=== PATIENT | female | born 1950 | race Caucasian/White ===

== ENCOUNTER 2018-11-23 18:59 | Emergency (ER) | payer MEDICARE, OTHER ==
[~2018-11-23] VITALS: Ht 167.6 cm; Wt 72.6 kg
[2018-11-23 19:54] LABS: Basophils # (auto) 0 uL; Basophils % (auto) 0.5 % (0.0-2.0); Eosinophils # (auto) 0.1 uL; Lymphocytes # (auto) 2.4 uL; Monocytes # (auto) 0.5 uL; Monocytes % (auto) 6.4 % (0.0-12.0); Nucleated Red Blood Cells % 0.2 %
[2018-11-23 19:55] LABS: Hematocrit 32.9 % (36.0-46.0); Hemoglobin 9.9 g/dL (12.2-16.2); Lymphocytes % (auto) 33.3 % (10.0-50.0); Mean Corpuscular Hemoglobin 23.7 pg (28.0-32.0); Neutrophils # (auto) 4.1 uL; Neutrophils % (auto) 57.8 % (37.0-80.0); Platelet Count (auto) 501 10^3/uL (140-450); Red Blood Cells 4.17 10^6/uL (4.0-5.20); Red Cell Distribution Width 17.9 % (11.8-14.3); White Blood Cell 7.1 10^3/uL (4.4-10.8)
[2018-11-23 20:16] LABS: Albumin 3.7 g/dL (3.4-5.0); Anion Gap 9 (5-15); Blood Urea Nitrogen 17 mg/dL (7-18); Calcium 8.9 mg/dL (8.5-10.1); Carbon Dioxide 20 mmol/L (21-32); Chloride 112 mmol/L (98-107); Glucose 127 mg/dL (74-106); Potassium 3.7 mmol/L (3.5-5.1); Sodium 141 mmol/L (136-145)
[2018-11-23 20:22] LABS: Alanine Aminotransferase 53 U/L (13-56); Alkaline Phosphatase 103 U/L (45-117); Aspartate Aminotransferase 16 U/L (15-37); BUN/Creatinine Ratio 19.3; Bilirubin, Total 0.3 mg/dL (0.2-1.0); GFR African American 82 mL/min; GFR Non-African American 68 mL/min; Total Protein 8.2 g/dL (6.4-8.2)
[2018-11-23] MEDS ORDERED: SODIUM CHLORIDE 0.9% 1,000 ML IVB ONE (20:58)
[2018-11-23 21:43] LABS: INR 0.95 (0.9-1.15); Partial Thromboplastin Time 26.2 sec (23.78-33.04); Prothrombin Time 10.2 sec (9.27-12.13)
[2018-11-23 21:47] LABS: Urine Bacteria FEW /hpf (None Seen); Urine Blood Negative /uL (Negative); Urine Specific Gravity 1.003 (1.001-1.035); Urine WBC <1 /hpf (0 - 5)
[2018-11-23] MEDS ORDERED: CLOP75TA28 PO (22:01)
[2018-11-23] MEDS ORDERED: METO-169 PO (22:01)
[2018-11-23] MEDS ORDERED: ATOR80TA PO (22:01)
[2018-11-23] MEDS ORDERED: ASPI81CH43 GT (22:01)
[2018-11-23 23:18] VITALS: BP 109/65
[2018-11-24] MEDS ORDERED: MULTIPLE VITAMIN 10 ML, MAGNESIUM SULF SDV 50% 8 MEQ in SODIUM CHLORIDE 0.9% 1,000 ML IV SCH (12:00)
== END 2018-11-23 23:30 | disposition home or self-care (01) ==
LOC: EDBD 18:59 → ER 19:01
DX: R55 Syncope and collapse (principal); D50.9 Iron deficiency anemia, unspecified; M25.572 Pain in left ankle and joints of left foot; F10.10 Alcohol abuse, uncomplicated; R42 Dizziness and giddiness; K21.9 Gastro-esophageal reflux disease without esophagitis; E78.5 Hyperlipidemia, unspecified; I10 Essential (primary) hypertension; Z90.49 Acquired absence of other specified parts of digestive tract; Z98.61 Coronary angioplasty status; Y90.8 Blood alcohol level of 240 mg/100 ml or more
CPT/HCPCS: 36415; 70450; 71045; 72125; 73610; 80053; 80320; 81001; 83735; 83880; 84484; 84550; 85025; 85610; 85730; 93005; 93970; 94761; 96360; 99284; J7040

== ENCOUNTER 2021-03-11 12:30 | Inpatient (IN) | payer MEDICARE, OTHER ==
[~2021-03-11] VITALS: Ht 157.5 cm; Wt 90.0 kg
[2021-03-11] VITALS (7 sets, daily range): BP systolic 122–137; BP diastolic 50–64
[~2021-03-11 12:30] MED LIST: ASPI81CH43 GT; ATOR80TA PO; CLOP75TA28 PO; METO-289 PO
[2021-03-11 13:26] LABS: Basophils # (auto) 0 10 ^3/uL (0-0.2); Eosinophils # (auto) 0 10 ^3/uL (0-0.8); Monocytes # (auto) 0.8 10 ^3/uL (0-1.3)
[2021-03-11 13:28] LABS: Basophils % (auto) 0.2 % (0.0-2.0); Eosinophils % (auto) 0.3 % (0.0-7.0); Hematocrit 21.1 % (36.0-46.0); Lymphocytes # (auto) 0.9 10 ^3/uL (0.4-5.4); Lymphocytes % (auto) 7.7 % (10.0-50.0); Mean Corpuscular Hemoglobin 22.5 pg (28.0-32.0); Mean Corpuscular Hgb Conc. 31.4 g/dL (32.0-36.0); Mean Corpuscular Volume 71.8 fL (80.0-100.0); Monocytes % (auto) 7.4 % (0.0-12.0); Neutrophils # (auto) 9.4 10 ^3/uL (1.6-8.6); Neutrophils % (auto) 84.4 % (37.0-80.0); Nucleated Red Blood Cells % 0.2 %; Red Blood Cells 2.94 10^6/uL (4.0-5.20); White Blood Cell 11.1 10^3/uL (4.4-10.8)
[2021-03-11 13:30] LABS: Red Cell Distribution Width 20.8 % (11.8-14.3)
[2021-03-11 13:33] LABS: Hemoglobin 6.6 g/dL (12.2-16.2)
[2021-03-11 13:43] LABS: Albumin 3.2 g/dL (3.4-5.0); Calcium 9.2 mg/dL (8.5-10.1); Potassium 3.7 mmol/L (3.5-5.1)
[2021-03-11 13:47] LABS: BUN/Creatinine Ratio 17.1; Bilirubin, Total 2.7 mg/dL (0.2-1.0)
[2021-03-11] MEDS ORDERED: ACETAMINOPHEN 325 MG TAB PO ONE (16:30)
[2021-03-11] MEDS ORDERED: MORPHINE SULF INJ 2 MG/ML SYRINGE 1ML IV ONE (16:30)
[2021-03-11] MEDS ORDERED: NITROGLYCERIN 0.4 MG SL TAB SL PRN (16:30)
[2021-03-11] MEDS ORDERED: ACETAMINOPHEN 500 MG TAB PO PRN (16:30)
[2021-03-11] MEDS ORDERED: ONDANSETRON HCL 4 MG/2 ML VIAL IV ONE (16:30)
[2021-03-11] MEDS ORDERED: MORPHINE SULF INJ 2 MG/ML SYRINGE 1ML IV PRN (16:30)
[2021-03-11 17:50] LABS: % Iron Saturation 4.8 % (15-50); Folate (Folic Acid) 9.76 ng/mL (5.38-24)
[2021-03-11] MEDS: ONDANSETRON HCL 4 MG/2 ML VIAL IV PRN (20:03)
[2021-03-11] MEDS: MORPHINE SULF INJ 2 MG/ML SYRINGE 1ML IV PRN (23:49)
[2021-03-12 05:00] VITALS: BP 118/58
[2021-03-12] MEDS: MORPHINE SULF INJ 2 MG/ML SYRINGE 1ML IV PRN ×4 (06:40→20:30)
[2021-03-12 06:46] LABS: Basophils # (auto) 0.1 10 ^3/uL (0-0.2); Basophils % (auto) 0.4 % (0.0-2.0); Eosinophils # (auto) 0 10 ^3/uL (0-0.8); Eosinophils % (auto) 0.1 % (0.0-7.0); Hematocrit 25.7 % (36.0-46.0); Lymphocytes % (auto) 7.3 % (10.0-50.0); Mean Corpuscular Hemoglobin 23.3 pg (28.0-32.0); Mean Corpuscular Hgb Conc. 31.3 g/dL (32.0-36.0); Mean Corpuscular Volume 74.4 fL (80.0-100.0); Monocytes # (auto) 0.9 10 ^3/uL (0-1.3); Monocytes % (auto) 6.1 % (0.0-12.0); Neutrophils # (auto) 12.4 10 ^3/uL (1.6-8.6); Neutrophils % (auto) 86.1 % (37.0-80.0); Nucleated Red Blood Cells % 0.1 %; Red Blood Cells 3.45 10^6/uL (4.0-5.20); Red Cell Distribution Width 20.7 % (11.8-14.3); White Blood Cell 14.4 10^3/uL (4.4-10.8)
[2021-03-12 07:03] LABS: Calcium 9.5 mg/dL (8.5-10.1)
[2021-03-12] MEDS ORDERED: VANCOMYCIN PER PHARMACY 0 MG IV SCH (08:45)
[2021-03-12 09:00] VITALS: BP 126/67
[2021-03-12] MEDS: cefTRIAXone 1GM/50ML D5W 50 ML IV SCH (09:17)
[2021-03-12 09:46] LABS: BUN/Creatinine Ratio 20.7
[2021-03-12] MEDS ORDERED: VANCOMYCIN 750mg/250ml 250 ML IV SCH (10:00)
[2021-03-12] MEDS ORDERED: CLOPIDOGREL BISULFATE 75 MG TAB PO SCH (10:00)
[2021-03-12] MEDS ORDERED: ASPirin 81 mg TAB PO SCH (10:00)
[2021-03-12] MEDS: FAMOTIDINE 20 MG TAB PO SCH (10:04)
[2021-03-12] MEDS: METOPROLOL SUCCINATE XL 50 MG TAB PO SCH (10:08)
[2021-03-12 10:57] LABS: Urine Bacteria FEW /hpf (None Seen); Urine Blood Negative /uL (Negative); Urine Specific Gravity 1.018 (1.001-1.035); Urine WBC <1 /hpf (0 - 5)
[2021-03-12 13:00] VITALS: BP 127/76
[2021-03-12] MEDS: metroNIDAZOLE 500MG/100ML 100 ML IV SCH ×2 (14:32→21:04)
[2021-03-12] MEDS ORDERED: GASTROGRAFIN 120 ML SOL ONE (16:15)
[2021-03-12] MEDS: SODIUM CHLORIDE 0.9% 1,000 ML IV SCH (16:45)
[2021-03-12] MEDS: ONDANSETRON HCL 4 MG/2 ML VIAL IV PRN (20:29)
[2021-03-12] MEDS ORDERED: FLEET ENEMA(ADULT) 135 ML PR ONE (22:00)
[2021-03-12 22:10] VITALS: BP 127/61
[2021-03-13] MEDS: MORPHINE SULF INJ 2 MG/ML SYRINGE 1ML IV PRN ×2 (01:19→05:21)
[2021-03-13 05:00] VITALS: BP 149/77
[2021-03-13] MEDS: metroNIDAZOLE 500MG/100ML 100 ML IV SCH ×2 (05:21→16:06)
[2021-03-13] MEDS: SODIUM CHLORIDE 0.9% 1,000 ML IV SCH (06:05)
[2021-03-13 06:15] LABS: Eosinophils # (auto) 0 10 ^3/uL (0-0.8); Eosinophils % (auto) 0.1 % (0.0-7.0); Hemoglobin 7.2 g/dL (12.2-16.2); Monocytes # (auto) 0.9 10 ^3/uL (0-1.3); White Blood Cell 10.9 10^3/uL (4.4-10.8)
[2021-03-13 06:20] LABS: Basophils # (auto) 0 10 ^3/uL (0-0.2); Basophils % (auto) 0.3 % (0.0-2.0); Hematocrit 22.6 % (36.0-46.0); Lymphocytes # (auto) 0.7 10 ^3/uL (0.4-5.4); Mean Corpuscular Hemoglobin 23.5 pg (28.0-32.0); Mean Corpuscular Hgb Conc. 31.8 g/dL (32.0-36.0); Mean Corpuscular Volume 73.7 fL (80.0-100.0); Neutrophils # (auto) 9.3 10 ^3/uL (1.6-8.6); Neutrophils % (auto) 85.6 % (37.0-80.0); Red Blood Cells 3.06 10^6/uL (4.0-5.20)
[2021-03-13 06:38] LABS: Potassium 3.1 mmol/L (3.5-5.1)
[2021-03-13 06:47] LABS: INR 1.06 (0.9-1.15); Partial Thromboplastin Time 28.2 sec (23.0-31.2)
[2021-03-13 06:48] LABS: Red Cell Distribution Width 21.5 % (11.8-14.3)
[2021-03-13 06:51] LABS: BUN/Creatinine Ratio 24.3; Calcium 9.3 mg/dL (8.5-10.1)
[2021-03-13 09:00] VITALS: BP 147/67
[2021-03-13] MEDS ORDERED: POTASSIUM CHLORIDE 40 MEQ, LIDOCAINE 1% (LOCAL ANESTH.) 4 ML in SODIUM CHL 0.9% 250 ML IV ONE (09:15)
[2021-03-13] MEDS: METOPROLOL SUCCINATE XL 50 MG TAB PO SCH (09:38)
[2021-03-13] MEDS: FAMOTIDINE 20 MG TAB PO SCH (09:38)
[2021-03-13] MEDS: cefTRIAXone 1GM/50ML D5W 50 ML IV SCH (09:39)
[2021-03-13] MEDS: HYDROcodone-ACET 5/325MG TAB PO PRN ×2 (11:00→20:12)
[2021-03-13 13:00] VITALS: BP 133/64
[2021-03-13] MEDS: ONDANSETRON HCL 4 MG/2 ML VIAL IV PRN (14:12)
[2021-03-13] MEDS: SODIUM FERR GLUC 62.5MG/5ML 125 MG in SODIUM CHL 0.9% 100 ML IV SCH (14:13)
[2021-03-13] MEDS: ERGOCALCIFEROL 50,000 UNIT(1.25MG) CAP PO SCH (14:14)
[2021-03-13 16:45] VITALS: BP 142/72
[2021-03-13] MEDS ORDERED: methylPREDNISolone SOD SUCC 40 MG/ML VL IV ONE (17:15)
[2021-03-13 22:27] VITALS: BP 111/59
[2021-03-14] VITALS (11 sets, daily range): BP systolic 128–157; BP diastolic 63–85
[2021-03-14] MEDS: HYDROcodone-ACET 5/325MG TAB PO PRN ×3 (02:11→22:24)
[2021-03-14 06:19] LABS: Eosinophils # (auto) 0 10 ^3/uL (0-0.8); Eosinophils % (auto) 0.1 % (0.0-7.0); Lymphocytes # (auto) 0.5 10 ^3/uL (0.4-5.4); Monocytes # (auto) 0.6 10 ^3/uL (0-1.3); Neutrophils # (auto) 9.5 10 ^3/uL (1.6-8.6)
[2021-03-14 07:17] LABS: Basophils # (auto) 0 10 ^3/uL (0-0.2); Basophils % (auto) 0.1 % (0.0-2.0); Hematocrit 21.7 % (36.0-46.0); Lymphocytes % (auto) 4.7 % (10.0-50.0); Mean Corpuscular Hemoglobin 23.8 pg (28.0-32.0); Mean Corpuscular Hgb Conc. 32.4 g/dL (32.0-36.0); Mean Corpuscular Volume 73.6 fL (80.0-100.0); Monocytes % (auto) 5.7 % (0.0-12.0); Neutrophils % (auto) 89.4 % (37.0-80.0); Red Blood Cells 2.95 10^6/uL (4.0-5.20); White Blood Cell 10.6 10^3/uL (4.4-10.8)
[2021-03-14 07:51] LABS: Red Cell Distribution Width 21.2 % (11.8-14.3)
[2021-03-14] MEDS: FAMOTIDINE 20 MG TAB PO SCH (09:05)
[2021-03-14] MEDS: methylPREDNISolone SOD SUCC 40 MG/ML VL IV SCH (09:05)
[2021-03-14] MEDS: METOPROLOL SUCCINATE XL 50 MG TAB PO SCH (09:06)
[2021-03-14] MEDS ORDERED: POTASSIUM CHLORIDE 20 MEQ, LIDOCAINE 1% (LOCAL ANESTH.) 2 ML in SODIUM CHL 0.9% 100 ML IV ONE (09:30)
[2021-03-14] MEDS: SODIUM FERR GLUC 62.5MG/5ML 125 MG in SODIUM CHL 0.9% 100 ML IV SCH (12:27)
[2021-03-14 21:21] LABS: Hematocrit 30.4 % (36.0-46.0); Hemoglobin 9.7 g/dL (12.2-16.2)
[2021-03-14 21:38] LABS: Potassium 3.5 mmol/L (3.5-5.1)
[2021-03-14 21:39] LABS: BUN/Creatinine Ratio 33.9; Calcium 9.8 mg/dL (8.5-10.1)
[2021-03-15] MEDS: HYDROcodone-ACET 5/325MG TAB PO PRN ×3 (04:35→18:10)
[2021-03-15 05:19] LABS: Basophils # (auto) 0 10 ^3/uL (0-0.2); Eosinophils # (auto) 0 10 ^3/uL (0-0.8); Eosinophils % (auto) 0.2 % (0.0-7.0); Lymphocytes # (auto) 0.9 10 ^3/uL (0.4-5.4); Neutrophils # (auto) 9.2 10 ^3/uL (1.6-8.6); Nucleated Red Blood Cells % 0.1 %; Red Blood Cells 3.92 10^6/uL (4.0-5.20)
[2021-03-15 05:20] LABS: Basophils % (auto) 0.1 % (0.0-2.0); Hematocrit 29.9 % (36.0-46.0); Hemoglobin 9.6 g/dL (12.2-16.2); Lymphocytes % (auto) 8.3 % (10.0-50.0); Mean Corpuscular Hemoglobin 24.5 pg (28.0-32.0); Mean Corpuscular Volume 76.5 fL (80.0-100.0); Monocytes # (auto) 0.9 10 ^3/uL (0-1.3); Monocytes % (auto) 7.8 % (0.0-12.0); Neutrophils % (auto) 83.6 % (37.0-80.0)
[2021-03-15 05:23] VITALS: BP 169/69
[2021-03-15 05:33] LABS: Potassium 3.5 mmol/L (3.5-5.1)
[2021-03-15 05:36] LABS: Red Cell Distribution Width 22.5 % (11.8-14.3)
[2021-03-15 05:42] LABS: Albumin 2.5 g/dL (3.4-5.0); BUN/Creatinine Ratio 41.5; Bilirubin, Total 1.2 mg/dL (0.2-1.0); Calcium 9.9 mg/dL (8.5-10.1); Total Protein 7.4 g/dL (6.4-8.2)
[2021-03-15 09:00] VITALS: BP 144/78
[2021-03-15] MEDS: methylPREDNISolone SOD SUCC 40 MG/ML VL IV SCH (10:17)
[2021-03-15] MEDS: FAMOTIDINE 20 MG TAB PO SCH (10:18)
[2021-03-15] MEDS: METOPROLOL SUCCINATE XL 50 MG TAB PO SCH (10:18)
[2021-03-15 13:00] VITALS: BP 142/81
[2021-03-15] MEDS: SODIUM FERR GLUC 62.5MG/5ML 125 MG in SODIUM CHL 0.9% 100 ML IV SCH (13:37)
[2021-03-15 17:00] VITALS: BP 140/78
[2021-03-15 22:25] VITALS: BP 117/80
[2021-03-16] VITALS (7 sets, daily range): BP systolic 141–163; BP diastolic 56–93
[2021-03-16] MEDS: HYDROcodone-ACET 5/325MG TAB PO PRN ×2 (00:38→21:02)
[2021-03-16] MEDS: ONDANSETRON HCL 4 MG/2 ML VIAL IV PRN ×2 (01:11→01:44)
[2021-03-16] MEDS: MORPHINE SULF INJ 2 MG/ML SYRINGE 1ML IV PRN ×3 (01:20→18:11)
[2021-03-16 05:34] LABS: Albumin 2.6 g/dL (3.4-5.0); Calcium 9.7 mg/dL (8.5-10.1); Potassium 3.5 mmol/L (3.5-5.1)
[2021-03-16 05:38] LABS: BUN/Creatinine Ratio 39.6; Total Protein 7.3 g/dL (6.4-8.2)
[2021-03-16 05:43] LABS: Basophils # (auto) 0 10 ^3/uL (0-0.2); Eosinophils # (auto) 0 10 ^3/uL (0-0.8); Hemoglobin 10.3 g/dL (12.2-16.2); Lymphocytes # (auto) 0.8 10 ^3/uL (0.4-5.4)
[2021-03-16 05:45] LABS: Basophils % (auto) 0.2 % (0.0-2.0); Eosinophils % (auto) 0.2 % (0.0-7.0); Hematocrit 31.5 % (36.0-46.0); Lymphocytes % (auto) 6.1 % (10.0-50.0); Mean Corpuscular Hemoglobin 25.2 pg (28.0-32.0); Mean Corpuscular Hgb Conc. 32.8 g/dL (32.0-36.0); Mean Corpuscular Volume 76.8 fL (80.0-100.0); Monocytes % (auto) 7.8 % (0.0-12.0); Neutrophils # (auto) 10.7 10 ^3/uL (1.6-8.6); Neutrophils % (auto) 85.7 % (37.0-80.0); White Blood Cell 12.5 10^3/uL (4.4-10.8)
[2021-03-16 05:52] LABS: Red Cell Distribution Width 22.8 % (11.8-14.3)
[2021-03-16] MEDS ORDERED: HEPARIN SODIUM (PORCINE) 5000 UNITS/ML 1ML VIAL SC SCH (10:00)
[2021-03-16] MEDS: methylPREDNISolone SOD SUCC 40 MG/ML VL IV SCH (11:02)
[2021-03-16] MEDS: FAMOTIDINE 20 MG TAB PO SCH (11:02)
[2021-03-16] MEDS: METOPROLOL SUCCINATE XL 50 MG TAB PO SCH (11:02)
[2021-03-17] MEDS: MORPHINE SULF INJ 2 MG/ML SYRINGE 1ML IV PRN ×2 (00:47→07:58)
[2021-03-17] MEDS: HYDROcodone-ACET 5/325MG TAB PO PRN (04:16)
[2021-03-17 05:05] VITALS: BP 145/85
[2021-03-17 06:32] LABS: Eosinophils # (auto) 0.1 10 ^3/uL (0-0.8); Hemoglobin 9.8 g/dL (12.2-16.2); Mean Corpuscular Hemoglobin 24.7 pg (28.0-32.0)
[2021-03-17 06:34] LABS: Basophils # (auto) 0.1 10 ^3/uL (0-0.2); Basophils % (auto) 0.7 % (0.0-2.0); Eosinophils % (auto) 0.8 % (0.0-7.0); Hematocrit 30.3 % (36.0-46.0); Lymphocytes % (auto) 6.6 % (10.0-50.0); Mean Corpuscular Hgb Conc. 32.2 g/dL (32.0-36.0); Mean Corpuscular Volume 76.8 fL (80.0-100.0); Monocytes % (auto) 6.9 % (0.0-12.0); Neutrophils # (auto) 12.4 10 ^3/uL (1.6-8.6); Red Blood Cells 3.95 10^6/uL (4.0-5.20); White Blood Cell 14.6 10^3/uL (4.4-10.8)
[2021-03-17 06:44] LABS: Red Cell Distribution Width 22.9 % (11.8-14.3)
[2021-03-17 06:48] LABS: BUN/Creatinine Ratio 33.3; Calcium 9.3 mg/dL (8.5-10.1)
[2021-03-17 08:15] VITALS: BP 145/84
[2021-03-17 09:20] VITALS: BP 145/84
[2021-03-17] MEDS ORDERED: KETOROLAC TROMETH 30 MG/ML 1ML VIAL IV ONE (09:30)
[2021-03-17] MEDS ORDERED: IOHEXOL 300 MG/ML 100ML BOTTLE IJ ONE (09:50)
[2021-03-17] MEDS ORDERED: diphenhdrAMINE HCL 50 MG/1 ML VL ONE (09:57)
[2021-03-17] MEDS: LACTULOSE 20Gm/30ML SOLN PO SCH (10:41)
[2021-03-17] MEDS: methylPREDNISolone SOD SUCC 40 MG/ML VL IV SCH (10:41)
[2021-03-17] MEDS: DOCUSATE SOD 100 MG CAP PO SCH ×2 (10:42→21:39)
[2021-03-17] MEDS: FAMOTIDINE 20 MG TAB PO SCH (10:42)
[2021-03-17] MEDS: METOPROLOL SUCCINATE XL 50 MG TAB PO SCH (10:42)
[2021-03-17] MEDS ORDERED: PANTOPRAZOLE 40 MG/10 ML VIAL INJ IV ONE (12:15)
[2021-03-17 13:00] VITALS: BP 119/74
[2021-03-17] MEDS: D5W/SOD CHL 0.9%/KCL 40MEQ 1,000 ML IV SCH (14:06)
[2021-03-17] MEDS: POTASSIUM CHL 20MEQ/100ML 100 ML IV SCH ×2 (14:07→15:47)
[2021-03-17] MEDS: KETOROLAC TROMETH 30 MG/ML 1ML VIAL IV PRN ×2 (14:07→20:25)
[2021-03-17 17:00] VITALS: BP 131/65
[2021-03-17 22:00] VITALS: BP 126/70
[2021-03-18] MEDS: KETOROLAC TROMETH 30 MG/ML 1ML VIAL IV PRN ×3 (02:33→17:49)
[2021-03-18] MEDS: D5W/SOD CHL 0.9%/KCL 40MEQ 1,000 ML IV SCH ×2 (04:53→14:15)
[2021-03-18 05:00] VITALS: BP 148/74
[2021-03-18 06:32] LABS: Basophils # (auto) 0 10 ^3/uL (0-0.2); Basophils % (auto) 0.1 % (0.0-2.0); Lymphocytes # (auto) 0.7 10 ^3/uL (0.4-5.4); Monocytes # (auto) 0.6 10 ^3/uL (0-1.3); Neutrophils # (auto) 12.1 10 ^3/uL (1.6-8.6); Red Blood Cells 3.78 10^6/uL (4.0-5.20); White Blood Cell 13.5 10^3/uL (4.4-10.8)
[2021-03-18 06:35] LABS: Eosinophils # (auto) 0.2 10 ^3/uL (0-0.8); Eosinophils % (auto) 1.2 % (0.0-7.0); Hematocrit 29.3 % (36.0-46.0); Hemoglobin 9.5 g/dL (12.2-16.2); Lymphocytes % (auto) 4.9 % (10.0-50.0); Mean Corpuscular Hemoglobin 25.2 pg (28.0-32.0); Mean Corpuscular Hgb Conc. 32.6 g/dL (32.0-36.0); Mean Corpuscular Volume 77.5 fL (80.0-100.0); Monocytes % (auto) 4.6 % (0.0-12.0); Neutrophils % (auto) 89.2 % (37.0-80.0)
[2021-03-18 06:42] LABS: BUN/Creatinine Ratio 21.1; Calcium 8.9 mg/dL (8.5-10.1)
[2021-03-18 06:48] LABS: Red Cell Distribution Width 23.6 % (11.8-14.3)
[2021-03-18 09:00] VITALS: BP 135/87
[2021-03-18] MEDS: LACTULOSE 20Gm/30ML SOLN PO SCH (09:21)
[2021-03-18] MEDS: METOPROLOL SUCCINATE XL 50 MG TAB PO SCH (09:22)
[2021-03-18] MEDS: methylPREDNISolone SOD SUCC 40 MG/ML VL IV SCH (09:22)
[2021-03-18] MEDS: DOCUSATE SOD 100 MG CAP PO SCH (09:22)
[2021-03-18] MEDS: PANTOPRAZOLE 40 MG/10 ML VIAL INJ IV SCH (09:23)
[2021-03-18] MEDS ORDERED: POTASSIUM CHLORIDE 40 MEQ, LIDOCAINE 1% (LOCAL ANESTH.) 4 ML in SODIUM CHL 0.9% 250 ML IV ONE (10:30)
[2021-03-18] MEDS ORDERED: PPN PER PHARMACY 0 ML IV SCH (10:30)
[2021-03-18 11:26] LABS: Magnesium 2.1 mg/dL (1.6-2.6); Phosphorus 3.1 mg/dL (2.5-4.90)
[2021-03-18] MEDS ORDERED: GASTROGRAFIN 120 ML SOL ONE ×3 (12:24→14:19)
[2021-03-18 13:16] VITALS: BP 137/74
[2021-03-18 15:51] LABS: INR 1.17 (0.9-1.15); Partial Thromboplastin Time 28.7 sec (23.0-31.2)
[2021-03-18 17:00] VITALS: BP 153/80
[2021-03-18] MEDS ORDERED: NEOSTIGMINE 1 MG/ML INJ (10mg/10ML VIAL) SC ONE (18:00)
[2021-03-18 20:00] VITALS: BP 158/79
[2021-03-18] MEDS ORDERED: AMINO ACID INFUSION IN D10W 1,000 ML IV NR (20:00)
[2021-03-18 22:00] VITALS: BP 158/79
[2021-03-19] MEDS ORDERED: DEXTROSE (50%) 50ML SYRG IV SCH
[2021-03-19] MEDS: KETOROLAC TROMETH 30 MG/ML 1ML VIAL IV PRN ×3 (00:07→06:15)
[2021-03-19] MEDS: ACCU-CHEK COMFORT CURVE STRIP VI SCH ×4 (00:47→18:07)
[2021-03-19] MEDS: InsuLIN REG 1unit/0.01ml Soln (100units/ml) SC SCH ×4 (00:48→18:08)
[2021-03-19 05:00] VITALS: BP 160/78
[2021-03-19 07:53] LABS: Potassium 3.1 mmol/L (3.5-5.1)
[2021-03-19 08:01] LABS: Albumin 2.2 g/dL (3.4-5.0); BUN/Creatinine Ratio 24.5; Bilirubin, Total 0.8 mg/dL (0.2-1.0); Phosphorus 2.4 mg/dL (2.5-4.90); Pre Albumin 14.1 mg/dL (20.0-40.0); Total Protein 6.1 g/dL (6.4-8.2)
[2021-03-19] MEDS ORDERED: SODIUM CHLORIDE LOCK 10 ML ONE (08:25)
[2021-03-19 08:54] VITALS: BP 164/85
[2021-03-19] MEDS ORDERED: POTASSIUM PHOSPHATE 44 MEQ in D5W 5% 250 ML IV ONE (09:00)
[2021-03-19] MEDS: PANTOPRAZOLE 40 MG/10 ML VIAL INJ IV SCH (10:09)
[2021-03-19] MEDS: methylPREDNISolone SOD SUCC 40 MG/ML VL IV SCH (10:10)
[2021-03-19] MEDS: METOPROLOL SUCCINATE XL 50 MG TAB PO SCH (10:11)
[2021-03-19 13:00] VITALS: BP 166/89
[2021-03-19] MEDS: D5W/SOD CHL 0.9%/KCL 40MEQ 1,000 ML IV SCH (14:15)
[2021-03-19] MEDS: diphenhdrAMINE HCL 50 MG/1 ML VL ONE ×2 (14:50→14:55)
[2021-03-19] MEDS: MIDAZOLAM HCL 5 MG/ML-1ML VIAL ONE ×2 (14:50→14:55)
[2021-03-19] MEDS: fentaNYL CITRATE 100 MCG/2 ML VL ONE ×2 (14:50→14:55)
[2021-03-19 17:00] VITALS: BP 144/71
[2021-03-19 20:00] VITALS: BP 149/71
[2021-03-19] MEDS ORDERED: PPN PER PHARMACY IV NR ×9 (20:00)
[2021-03-19 22:00] VITALS: BP 149/79
[2021-03-20] MEDS: KETOROLAC TROMETH 30 MG/ML 1ML VIAL IV PRN (01:00)
[2021-03-20] MEDS: D5W/SOD CHL 0.9%/KCL 40MEQ 1,000 ML IV SCH (03:30)
[2021-03-20 05:00] VITALS: BP 160/84
[2021-03-20 05:55] LABS: Albumin 2.2 g/dL (3.4-5.0); Calcium 8.3 mg/dL (8.5-10.1); Magnesium 2.2 mg/dL (1.6-2.6); Potassium 3.3 mmol/L (3.5-5.1)
[2021-03-20 05:58] LABS: BUN/Creatinine Ratio 27.7; Bilirubin, Total 0.6 mg/dL (0.2-1.0); Phosphorus 3.4 mg/dL (2.5-4.90); Total Protein 6.2 g/dL (6.4-8.2)
[2021-03-20] MEDS: InsuLIN REG 1unit/0.01ml Soln (100units/ml) SC SCH ×4 (06:00→18:00)
[2021-03-20] MEDS: ACCU-CHEK COMFORT CURVE STRIP VI SCH ×4 (06:17→18:20)
[2021-03-20 08:00] VITALS: BP 158/78
[2021-03-20 08:41] VITALS: BP 157/77
[2021-03-20] MEDS ORDERED: GOLYTELY 4L KIT PO ONE ×2 (09:30→11:00)
[2021-03-20] MEDS: D5W/SOD CHL 0.45%/KCL 40MEQ 1,000 ML IV SCH ×2 (11:00→21:49)
[2021-03-20] MEDS ORDERED: LIDOCAINE 1% (LOCAL ANESTH.) PF 5ml SDV ID ONE (11:45)
[2021-03-20] MEDS: methylPREDNISolone SOD SUCC 40 MG/ML VL IV SCH (12:02)
[2021-03-20] MEDS: PANTOPRAZOLE 40 MG/10 ML VIAL INJ IV SCH (12:02)
[2021-03-20] MEDS: METOPROLOL SUCCINATE XL 50 MG TAB PO SCH (12:03)
[2021-03-20 13:00] VITALS: BP 158/78
[2021-03-20] MEDS: ERGOCALCIFEROL 50,000 UNIT(1.25MG) CAP PO SCH (13:00)
[2021-03-20] MEDS: hydrALAZINE HCL 20 MG/ML VL IV PRN (16:35)
[2021-03-20 16:38] VITALS: BP 168/92
[2021-03-20] MEDS ORDERED: PPN PER PHARMACY IV NR ×18 (20:00)
[2021-03-20] MEDS: PPN PER PHARMACY IV NR ×9 (20:25)
[2021-03-20] MEDS: HYDROcodone-ACET 5/325MG TAB PO PRN (20:47)
[2021-03-20] MEDS ORDERED: TPN PER PHARMACY 0 ML IV SCH (21:15)
[2021-03-20] MEDS: SODIUM CHLOR 0.9% PF (SALINE LOCK) 10ML VIAL/SYR IV SCH (21:52)
[2021-03-20 22:13] VITALS: BP 148/72
[2021-03-21] VITALS (50 sets, daily range): BP systolic 60–168; BP diastolic 40–94
[2021-03-21] MEDS: D5W/SOD CHL 0.45%/KCL 40MEQ 1,000 ML IV SCH (03:40)
[2021-03-21] MEDS: ACCU-CHEK COMFORT CURVE STRIP VI SCH ×4 (05:30→18:01)
[2021-03-21] MEDS: InsuLIN REG 1unit/0.01ml Soln (100units/ml) SC SCH ×4 (05:31→18:01)
[2021-03-21] MEDS ORDERED: HYDROmorphone HCL 2 MG/ML VL ONE ×2 (07:08→08:03)
[2021-03-21] MEDS ORDERED: fentaNYL CITRATE 100 MCG/2 ML VL ONE (07:09)
[2021-03-21] MEDS ORDERED: ETOMIDATE (2MG/ML) 20ML VIAL IV ONE (07:09)
[2021-03-21] MEDS ORDERED: ceFAZolin 1GM/50ML 100 ML IV ONE (07:09)
[2021-03-21] MEDS ORDERED: MIDAZOLAM HCL 2MG/2ML 2ml VIAL (1mg/ml) ONE ×3 (07:09→08:39)
[2021-03-21] MEDS ORDERED: fentaNYL CITRATE 5 ML ONE ×2 (07:09→08:31)
[2021-03-21] MEDS ORDERED: SUCCINYLCHOLINE CHLORIDE 20 MG/ML 10ML VIAL IV ONE (07:09)
[2021-03-21] MEDS ORDERED: metroNIDAZOLE 500MG/100ML 100 ML IV ONE (07:10)
[2021-03-21] MEDS ORDERED: ROCURONIUM 10MG/ML 10ML VIAL IV ONE (08:05)
[2021-03-21] MEDS ORDERED: POVIDONE IODINE 10 % TOPICAL OINT 30GM TOP ONE (09:25)
[2021-03-21] MEDS: METOPROLOL SUCCINATE XL 50 MG TAB PO SCH (10:00)
[2021-03-21] MEDS: SODIUM CHLOR 0.9% PF (SALINE LOCK) 10ML VIAL/SYR IV SCH ×2 (10:00→21:24)
[2021-03-21] MEDS ORDERED: MIDAZOLAM DRIP 50 mg/50mL 50 ML IV ONE (10:03)
[2021-03-21] MEDS ORDERED: POTASSIUM CHLORIDE 40 MEQ in SOD CHL 0.45% 1,000 ML IV SCH (10:15)
[2021-03-21] MEDS ORDERED: LABETALOL HCL 5 MG/ML 4ML SYRINGE IV PRN (10:15)
[2021-03-21] MEDS ORDERED: HYDROmorphone HCL 2 MG/ML VL IV PRN (10:15)
[2021-03-21] MEDS ORDERED: MORPHINE SULFATE 4 MG/ML SYR/VIAL IV PRN (10:15)
[2021-03-21] MEDS ORDERED: ONDANSETRON HCL 4 MG/2 ML VIAL IV PRN (10:15)
[2021-03-21] MEDS ORDERED: MIDAZOLAM HCL 2MG/2ML 2ml VIAL (1mg/ml) IV PRN (10:15)
[2021-03-21] MEDS ORDERED: ePHEDrine SULFATE 50 MG/ML AMP IV PRN (10:15)
[2021-03-21] MEDS: fentaNYL Drip 2500mCg/250mlNS 250 ML IV SCH (10:45)
[2021-03-21] MEDS: ceFAZolin 1GM/50ML 50 ML IV SCH ×2 (12:00→18:00)
[2021-03-21] MEDS: MIDAZOLAM DRIP 50 mg/50mL 50 ML IV SCH (14:00)
[2021-03-21] MEDS ORDERED: metroNIDAZOLE 500 MG TAB PO SCH (14:00)
[2021-03-21] MEDS: NOREPINEPHRINE 8 MG/250ML KIT 250 ML IV SCH (14:45)
[2021-03-21 15:38] LABS: Albumin 2.1 g/dL (3.4-5.0); Potassium 4.1 mmol/L (3.5-5.1)
[2021-03-21 15:43] LABS: BUN/Creatinine Ratio 19.3; Bilirubin, Total 0.5 mg/dL (0.2-1.0); Total Protein 5.3 g/dL (6.4-8.2)
[2021-03-21] MEDS: PPN PER PHARMACY IV NR ×9 (19:55)
[2021-03-21] MEDS: TPN PER PHARMACY IV NR ×5 (20:56)
[2021-03-21] MEDS: metroNIDAZOLE 500MG/100ML 100 ML IV SCH (21:22)
[2021-03-21] MEDS: SOD CHL 0.45% 1,000 ML IV SCH (21:23)
[2021-03-22] VITALS (83 sets, daily range): BP systolic 81–170; BP diastolic 44–101
[2021-03-22] MEDS: IPRATROPIUM BROM 0.5 MG/2.5ML INH SOL NEB SCH ×4 (00:30→18:00)
[2021-03-22] MEDS: ALBUTEROL SULF 2.5 MG/0.5ML(0.5%) NEB SOLN NEB SCH ×4 (00:30→18:00)
[2021-03-22] MEDS: MIDAZOLAM DRIP 50 mg/50mL 50 ML IV SCH (02:04)
[2021-03-22] MEDS: ceFAZolin 1GM/50ML 50 ML IV SCH ×5 (02:06→23:17)
[2021-03-22 04:10] LABS: Basophils # (auto) 0 10 ^3/uL (0-0.2); Eosinophils # (auto) 0 10 ^3/uL (0-0.8); Lymphocytes # (auto) 0.7 10 ^3/uL (0.4-5.4); Lymphocytes % (auto) 6.5 % (10.0-50.0)
[2021-03-22 04:13] LABS: Basophils % (auto) 0.2 % (0.0-2.0); Eosinophils % (auto) 0.2 % (0.0-7.0); Hematocrit 23.9 % (36.0-46.0); Hemoglobin 7.7 g/dL (12.2-16.2); Mean Corpuscular Hemoglobin 25.6 pg (28.0-32.0); Mean Corpuscular Hgb Conc. 32.2 g/dL (32.0-36.0); Mean Corpuscular Volume 79.7 fL (80.0-100.0); Monocytes # (auto) 0.5 10 ^3/uL (0-1.3); Neutrophils # (auto) 9.6 10 ^3/uL (1.6-8.6); Neutrophils % (auto) 88.1 % (37.0-80.0); White Blood Cell 10.9 10^3/uL (4.4-10.8)
[2021-03-22 04:31] LABS: Albumin 1.7 g/dL (3.4-5.0); Calcium 7.8 mg/dL (8.5-10.1); Magnesium 1.6 mg/dL (1.6-2.6); Potassium 3.9 mmol/L (3.5-5.1)
[2021-03-22 04:35] LABS: Bilirubin, Total 0.4 mg/dL (0.2-1.0); Phosphorus 2.3 mg/dL (2.5-4.90)
[2021-03-22] MEDS: metroNIDAZOLE 500MG/100ML 100 ML IV SCH ×3 (05:36→20:51)
[2021-03-22] MEDS: InsuLIN REG 1unit/0.01ml Soln (100units/ml) SC SCH ×5 (05:37→23:49)
[2021-03-22] MEDS: ACCU-CHEK COMFORT CURVE STRIP VI SCH ×4 (05:43→17:42)
[2021-03-22] MEDS: PANTOPRAZOLE 40 MG/10 ML VIAL INJ IV SCH (09:53)
[2021-03-22] MEDS: fentaNYL Drip 2500mCg/250mlNS 250 ML IV SCH (09:54)
[2021-03-22] MEDS: NOREPINEPHRINE 8 MG/250ML KIT 250 ML IV SCH (09:54)
[2021-03-22] MEDS: METOPROLOL SUCCINATE XL 50 MG TAB PO SCH (09:54)
[2021-03-22] MEDS: SODIUM CHLOR 0.9% PF (SALINE LOCK) 10ML VIAL/SYR IV SCH ×2 (09:54→22:00)
[2021-03-22] MEDS ORDERED: POTASSIUM PHOSPHATE 22 MEQ in SODIUM CHL 0.9% 100 ML IV ONE (10:15)
[2021-03-22] MEDS: MAGNESIUM SULFATE 1GM/100ML 100 ML IV SCH ×2 (10:43→11:41)
[2021-03-22] MEDS: SOD CHL 0.45% 1,000 ML IV SCH (10:44)
[2021-03-22] MEDS: HYDROmorphone HCL 2 MG/ML VL IV PRN ×2 (14:19→20:56)
[2021-03-22 19:50] LABS: Hemoglobin 8.3 g/dL (12.2-16.2)
[2021-03-22 19:54] LABS: Hematocrit 26.5 % (36.0-46.0)
[2021-03-22] MEDS: TPN PER PHARMACY IV NR ×5 (19:58)
[2021-03-22] MEDS ORDERED: TPN PER PHARMACY IV NR ×5 (20:00)
[2021-03-23] VITALS (22 sets, daily range): BP systolic 115–147; BP diastolic 50–68
[2021-03-23] MEDS: ALBUTEROL SULF 2.5 MG/0.5ML(0.5%) NEB SOLN NEB SCH ×4 (00:55→18:00)
[2021-03-23] MEDS: IPRATROPIUM BROM 0.5 MG/2.5ML INH SOL NEB SCH ×4 (00:55→18:00)
[2021-03-23 04:06] LABS: Hemoglobin 7.2 g/dL (12.2-16.2)
[2021-03-23 04:10] LABS: Basophils # (auto) 0 10 ^3/uL (0-0.2); Basophils % (auto) 0.3 % (0.0-2.0); Eosinophils # (auto) 0.1 10 ^3/uL (0-0.8); Eosinophils % (auto) 0.4 % (0.0-7.0); Hematocrit 22.3 % (36.0-46.0); Lymphocytes # (auto) 0.8 10 ^3/uL (0.4-5.4); Lymphocytes % (auto) 5.8 % (10.0-50.0); Mean Corpuscular Hemoglobin 25.4 pg (28.0-32.0); Mean Corpuscular Hgb Conc. 32.1 g/dL (32.0-36.0); Mean Corpuscular Volume 79.2 fL (80.0-100.0); Monocytes % (auto) 7.1 % (0.0-12.0); Neutrophils % (auto) 86.4 % (37.0-80.0); Red Blood Cells 2.81 10^6/uL (4.0-5.20); White Blood Cell 13.9 10^3/uL (4.4-10.8)
[2021-03-23 04:14] LABS: Red Cell Distribution Width 24.3 % (11.8-14.3)
[2021-03-23 04:20] LABS: Calcium 7.6 mg/dL (8.5-10.1); Chloride 112 mmol/L (98-107); Potassium 3.3 mmol/L (3.5-5.1); Sodium 140 mmol/L (136-145)
[2021-03-23 04:23] LABS: Albumin 1.6 g/dL (3.4-5.0); Anion Gap 6 (5-15); BUN/Creatinine Ratio 27.5; Blood Urea Nitrogen 14 mg/dL (7-18); Carbon Dioxide 22 mmol/L (21-32); GFR African American 153 mL/min; GFR Non-African American 126 mL/min; Glucose 149 mg/dL (74-106); Magnesium 1.9 mg/dL (1.6-2.6)
[2021-03-23] MEDS: ceFAZolin 1GM/50ML 50 ML IV SCH ×3 (04:23→17:35)
[2021-03-23] MEDS: metroNIDAZOLE 500MG/100ML 100 ML IV SCH ×3 (04:23→21:04)
[2021-03-23] MEDS: HYDROmorphone HCL 2 MG/ML VL IV PRN ×4 (04:24→20:13)
[2021-03-23 04:36] LABS: Alanine Aminotransferase 9 U/L (13-56); Alkaline Phosphatase 90 U/L (45-117); Aspartate Aminotransferase < 3 U/L (15-37); Bilirubin, Total 0.4 mg/dL (0.2-1.0); Phosphorus 2.3 mg/dL (2.5-4.90)
[2021-03-23] MEDS: InsuLIN REG 1unit/0.01ml Soln (100units/ml) SC SCH ×3 (06:00→17:31)
[2021-03-23] MEDS: ACCU-CHEK COMFORT CURVE STRIP VI SCH ×4 (06:00→17:29)
[2021-03-23] MEDS ORDERED: POTASSIUM PHOSPHATE 44 MEQ in D5W 5% 250 ML IV ONE (08:30)
[2021-03-23] MEDS: SODIUM CHLOR 0.9% PF (SALINE LOCK) 10ML VIAL/SYR IV SCH ×2 (09:55→22:00)
[2021-03-23] MEDS: METOPROLOL SUCCINATE XL 50 MG TAB PO SCH (09:55)
[2021-03-23] MEDS: PANTOPRAZOLE 40 MG/10 ML VIAL INJ IV SCH (09:55)
[2021-03-23] MEDS: SOD CHL 0.45% 1,000 ML IV SCH (11:45)
[2021-03-23] MEDS: NOREPINEPHRINE 8 MG/250ML KIT 250 ML IV SCH (13:45)
[2021-03-23 19:02] LABS: Hematocrit 22.7 % (36.0-46.0); Hemoglobin 7.3 g/dL (12.2-16.2)
[2021-03-23] MEDS ORDERED: TPN PER PHARMACY IV NR ×14 (20:00)
[2021-03-24] VITALS (29 sets, daily range): BP systolic 105–145; BP diastolic 46–66
[2021-03-24] MEDS: ceFAZolin 1GM/50ML 50 ML IV SCH ×2 (01:16→03:45)
[2021-03-24] MEDS: metroNIDAZOLE 500MG/100ML 100 ML IV SCH (03:44)
[2021-03-24] MEDS: SOD CHL 0.45% 1,000 ML IV SCH (03:46)
[2021-03-24] MEDS: HYDROmorphone HCL 2 MG/ML VL IV PRN ×7 (03:47→20:48)
[2021-03-24 04:12] LABS: Hematocrit 21.1 % (36.0-46.0); Mean Corpuscular Hemoglobin 25.7 pg (28.0-32.0); Mean Corpuscular Hgb Conc. 32.4 g/dL (32.0-36.0); Mean Corpuscular Volume 79.1 fL (80.0-100.0); Red Blood Cells 2.67 10^6/uL (4.0-5.20); White Blood Cell 19.4 10^3/uL (4.4-10.8)
[2021-03-24 04:16] LABS: Red Cell Distribution Width 24.4 % (11.8-14.3)
[2021-03-24 04:20] LABS: Hemoglobin 6.9 g/dL (12.2-16.2)
[2021-03-24 04:21] LABS: Basophils % (manual) 0 (0.0-2.0); Blast Cells 0; Eosinophils % (manual) 0 (0-7); Metamyelocytes % 0; Myelocytes % 0; Promyelocytes % 0; Reactive Lymphocytes 0
[2021-03-24 04:26] LABS: Albumin 1.6 g/dL (3.4-5.0); Calcium 7.5 mg/dL (8.5-10.1); Magnesium 2.1 mg/dL (1.6-2.6); Potassium 3.6 mmol/L (3.5-5.1)
[2021-03-24 04:31] LABS: BUN/Creatinine Ratio 27.8; Bilirubin, Total 0.6 mg/dL (0.2-1.0); Phosphorus 1.7 mg/dL (2.5-4.90); Total Protein 5.1 g/dL (6.4-8.2)
[2021-03-24 04:49] LABS: Band Neutrophils % (manual) 20; Lymphocytes % (manual) 1 (10.0-50.0); Monocytes % (manual) 2 (0-12)
[2021-03-24] MEDS: InsuLIN REG 1unit/0.01ml Soln (100units/ml) SC SCH ×4 (05:23→18:00)
[2021-03-24] MEDS: ACCU-CHEK COMFORT CURVE STRIP VI SCH ×4 (06:00→18:00)
[2021-03-24] MEDS: IPRATROPIUM BROM 0.5 MG/2.5ML INH SOL NEB SCH ×4 (06:06→18:17)
[2021-03-24] MEDS: ALBUTEROL SULF 2.5 MG/0.5ML(0.5%) NEB SOLN NEB SCH ×4 (06:06→18:17)
[2021-03-24] MEDS: METOPROLOL SUCCINATE XL 50 MG TAB PO SCH (07:50)
[2021-03-24] MEDS: SODIUM CHLOR 0.9% PF (SALINE LOCK) 10ML VIAL/SYR IV SCH ×2 (10:00→22:00)
[2021-03-24] MEDS ORDERED: SODIUM PHOSPHATES 40 MEQ in D5W 5% 250 ML IV ONE (11:30)
[2021-03-24] MEDS ORDERED: PIPERACILLIN-TAZOB 3.375GM 100 ML IV ONE (11:30)
[2021-03-24] MEDS: PANTOPRAZOLE 40 MG/10 ML VIAL INJ IV SCH (12:16)
[2021-03-24] MEDS ORDERED: ENOXAPARIN SOD 40 MG/0.4 ML SYRINGE SC ONE (13:45)
[2021-03-24] MEDS: NOREPINEPHRINE 8 MG/250ML KIT 250 ML IV SCH (14:45)
[2021-03-24] MEDS: PIPERACILLIN-TAZOB 3.375GM 100 ML IV SCH (17:54)
[2021-03-24] MEDS ORDERED: TPN PER PHARMACY IV NR ×9 (20:00)
[2021-03-25] VITALS (19 sets, daily range): BP systolic 108–147; BP diastolic 51–64
[2021-03-25] MEDS: ALBUTEROL SULF 2.5 MG/0.5ML(0.5%) NEB SOLN NEB SCH ×4 (00:10→18:44)
[2021-03-25] MEDS: IPRATROPIUM BROM 0.5 MG/2.5ML INH SOL NEB SCH ×4 (00:10→18:44)
[2021-03-25] MEDS: HYDROmorphone HCL 2 MG/ML VL IV PRN ×4 (00:31→22:19)
[2021-03-25 03:51] LABS: Basophils # (auto) 0.1 10 ^3/uL (0-0.2); Eosinophils # (auto) 0.1 10 ^3/uL (0-0.8); Hemoglobin 8.1 g/dL (12.2-16.2)
[2021-03-25 03:54] LABS: Basophils % (auto) 0.5 % (0.0-2.0); Eosinophils % (auto) 0.2 % (0.0-7.0); Hematocrit 25.1 % (36.0-46.0); Lymphocytes % (auto) 3.9 % (10.0-50.0); Mean Corpuscular Hemoglobin 25.9 pg (28.0-32.0); Mean Corpuscular Hgb Conc. 32.1 g/dL (32.0-36.0); Mean Corpuscular Volume 80.5 fL (80.0-100.0); Monocytes # (auto) 1.2 10 ^3/uL (0-1.3); Monocytes % (auto) 4.6 % (0.0-12.0); Neutrophils # (auto) 23.8 10 ^3/uL (1.6-8.6); Neutrophils % (auto) 90.8 % (37.0-80.0); Red Blood Cells 3.12 10^6/uL (4.0-5.20); White Blood Cell 26.2 10^3/uL (4.4-10.8)
[2021-03-25 04:05] LABS: Red Cell Distribution Width 23.3 % (11.8-14.3)
[2021-03-25 04:11] LABS: Albumin 1.6 g/dL (3.4-5.0); Calcium 8.3 mg/dL (8.5-10.1); Magnesium 2.4 mg/dL (1.6-2.6)
[2021-03-25 04:14] LABS: BUN/Creatinine Ratio 32.8; Phosphorus 2.5 mg/dL (2.5-4.90); Total Protein 5.7 g/dL (6.4-8.2)
[2021-03-25] MEDS: PIPERACILLIN-TAZOB 3.375GM 100 ML IV SCH ×4 (04:55→18:26)
[2021-03-25] MEDS: SOD CHL 0.45% 1,000 ML IV SCH (04:56)
[2021-03-25] MEDS: InsuLIN REG 1unit/0.01ml Soln (100units/ml) SC SCH ×4 (06:04→18:00)
[2021-03-25] MEDS: ACCU-CHEK COMFORT CURVE STRIP VI SCH ×4 (06:05→18:28)
[2021-03-25] MEDS: METOPROLOL SUCCINATE XL 50 MG TAB PO SCH (10:00)
[2021-03-25] MEDS ORDERED: SODIUM PHOSPHATES 20 MEQ in SODIUM CHL 0.9% 100 ML IV ONE (11:00)
[2021-03-25] MEDS: PANTOPRAZOLE 40 MG/10 ML VIAL INJ IV SCH (11:08)
[2021-03-25] MEDS: SODIUM CHLOR 0.9% PF (SALINE LOCK) 10ML VIAL/SYR IV SCH ×2 (11:10→20:35)
[2021-03-25] MEDS ORDERED: FUROSEMIDE 40 MG/4 ML VIAL IV ONE (11:30)
[2021-03-25] MEDS: ENOXAPARIN SOD 40 MG/0.4 ML SYRINGE SC SCH (18:27)
[2021-03-25] MEDS ORDERED: TPN PER PHARMACY IV NR ×10 (20:00)
[2021-03-26] VITALS (8 sets, daily range): BP systolic 124–149; BP diastolic 52–69
[2021-03-26] MEDS: HYDROmorphone HCL 2 MG/ML VL IV PRN ×5 (04:11→21:04)
[2021-03-26] MEDS: ACCU-CHEK COMFORT CURVE STRIP VI SCH ×4 (05:37→17:51)
[2021-03-26] MEDS: InsuLIN REG 1unit/0.01ml Soln (100units/ml) SC SCH ×4 (05:37→17:50)
[2021-03-26] MEDS: PIPERACILLIN-TAZOB 3.375GM 100 ML IV SCH ×4 (05:41→18:00)
[2021-03-26] MEDS: IPRATROPIUM BROM 0.5 MG/2.5ML INH SOL NEB SCH ×4 (06:41→18:25)
[2021-03-26] MEDS: ALBUTEROL SULF 2.5 MG/0.5ML(0.5%) NEB SOLN NEB SCH ×4 (06:41→18:25)
[2021-03-26 07:12] LABS: Basophils # (auto) 0.1 10 ^3/uL (0-0.2); Eosinophils # (auto) 0.1 10 ^3/uL (0-0.8); Lymphocytes # (auto) 0.8 10 ^3/uL (0.4-5.4)
[2021-03-26 07:14] LABS: Basophils % (auto) 0.3 % (0.0-2.0); Eosinophils % (auto) 0.4 % (0.0-7.0); Hematocrit 21.8 % (36.0-46.0); Lymphocytes % (auto) 4.3 % (10.0-50.0); Mean Corpuscular Hemoglobin 25.8 pg (28.0-32.0); Mean Corpuscular Hgb Conc. 32.2 g/dL (32.0-36.0); Mean Corpuscular Volume 80.1 fL (80.0-100.0); Neutrophils # (auto) 17.3 10 ^3/uL (1.6-8.6); Nucleated Red Blood Cells % 0.1 %; Red Blood Cells 2.73 10^6/uL (4.0-5.20); White Blood Cell 19.2 10^3/uL (4.4-10.8)
[2021-03-26 07:46] LABS: Red Cell Distribution Width 23.9 % (11.8-14.3)
[2021-03-26 08:03] LABS: Albumin 1.4 g/dL (3.4-5.0); Anion Gap 7 (5-15); Blood Urea Nitrogen 24 mg/dL (7-18); Calcium 8.4 mg/dL (8.5-10.1); Carbon Dioxide 30 mmol/L (21-32); Chloride 100 mmol/L (98-107); Glucose 150 mg/dL (74-106); Magnesium 2.5 mg/dL (1.6-2.6); Potassium 3.3 mmol/L (3.5-5.1); Sodium 137 mmol/L (136-145)
[2021-03-26 08:07] LABS: Alanine Aminotransferase < 6 U/L (13-56); Alkaline Phosphatase 102 U/L (45-117); Aspartate Aminotransferase 6 U/L (15-37); BUN/Creatinine Ratio 40.7; Bilirubin, Total 0.7 mg/dL (0.2-1.0); GFR African American 129 mL/min; GFR Non-African American 107 mL/min; Phosphorus 3.4 mg/dL (2.5-4.90); Total Protein 5.9 g/dL (6.4-8.2)
[2021-03-26] MEDS: PANTOPRAZOLE 40 MG/10 ML VIAL INJ IV SCH (09:26)
[2021-03-26] MEDS: SODIUM CHLOR 0.9% PF (SALINE LOCK) 10ML VIAL/SYR IV SCH ×2 (09:26→20:50)
[2021-03-26] MEDS: ENOXAPARIN SOD 40 MG/0.4 ML SYRINGE SC SCH (09:26)
[2021-03-26] MEDS ORDERED: METOPROLOL TARTRATE 1MG/1ML-5ML VIAL IV PRN (10:00)
[2021-03-26] MEDS: METOPROLOL SUCCINATE XL 50 MG TAB PO SCH (10:00)
[2021-03-26] MEDS ORDERED: POTASSIUM CHLORIDE 40 MEQ, LIDOCAINE 1% (LOCAL ANESTH.) 4 ML in SODIUM CHL 0.9% 250 ML IV ONE (10:15)
[2021-03-26 17:27] LABS: Basophils # (auto) 0 10 ^3/uL (0-0.2); Basophils % (auto) 0.1 % (0.0-2.0); Eosinophils # (auto) 0 10 ^3/uL (0-0.8); Eosinophils % (auto) 0.1 % (0.0-7.0); Neutrophils % (auto) 91.7 % (37.0-80.0)
[2021-03-26 17:29] LABS: Hemoglobin 8.4 g/dL (12.2-16.2); Lymphocytes # (auto) 0.7 10 ^3/uL (0.4-5.4); Lymphocytes % (auto) 3.9 % (10.0-50.0); Mean Corpuscular Hemoglobin 28.1 pg (28.0-32.0); Mean Corpuscular Hgb Conc. 31.1 g/dL (32.0-36.0); Mean Corpuscular Volume 90.1 fL (80.0-100.0); Monocytes # (auto) 0.8 10 ^3/uL (0-1.3); Monocytes % (auto) 4.2 % (0.0-12.0); Neutrophils # (auto) 17.2 10 ^3/uL (1.6-8.6); Nucleated Red Blood Cells % 0.1 %; White Blood Cell 18.7 10^3/uL (4.4-10.8)
[2021-03-26 17:37] LABS: Red Cell Distribution Width 22.5 % (11.8-14.3)
[2021-03-26] MEDS ORDERED: TPN PER PHARMACY IV NR ×10 (20:00)
[2021-03-27] MEDS: HYDROmorphone HCL 2 MG/ML VL IV PRN ×5 (00:53→21:08)
[2021-03-27] MEDS: PIPERACILLIN-TAZOB 3.375GM 100 ML IV SCH ×4 (00:53→17:21)
[2021-03-27] MEDS: InsuLIN REG 1unit/0.01ml Soln (100units/ml) SC SCH ×4 (00:57→18:17)
[2021-03-27 05:00] VITALS: BP 143/74
[2021-03-27] MEDS: ACCU-CHEK COMFORT CURVE STRIP VI SCH ×4 (06:08→18:00)
[2021-03-27] MEDS: ALBUTEROL SULF 2.5 MG/0.5ML(0.5%) NEB SOLN NEB SCH ×4 (06:16→19:12)
[2021-03-27] MEDS: IPRATROPIUM BROM 0.5 MG/2.5ML INH SOL NEB SCH ×4 (06:16→19:12)
[2021-03-27 06:38] LABS: Eosinophils # (auto) 0.1 10 ^3/uL (0-0.8); Eosinophils % (auto) 0.3 % (0.0-7.0); Hemoglobin 8.3 g/dL (12.2-16.2); Lymphocytes # (auto) 0.6 10 ^3/uL (0.4-5.4); Lymphocytes % (auto) 3.6 % (10.0-50.0); Monocytes # (auto) 0.8 10 ^3/uL (0-1.3); Nucleated Red Blood Cells % 0.1 %
[2021-03-27 06:40] LABS: Basophils # (auto) 0 10 ^3/uL (0-0.2); Basophils % (auto) 0.1 % (0.0-2.0); Hematocrit 25.4 % (36.0-46.0); Mean Corpuscular Hemoglobin 26.5 pg (28.0-32.0); Mean Corpuscular Hgb Conc. 32.6 g/dL (32.0-36.0); Mean Corpuscular Volume 81.5 fL (80.0-100.0); Monocytes % (auto) 4.6 % (0.0-12.0); Neutrophils % (auto) 91.4 % (37.0-80.0); Red Blood Cells 3.11 10^6/uL (4.0-5.20); White Blood Cell 16.4 10^3/uL (4.4-10.8)
[2021-03-27 06:47] LABS: Red Cell Distribution Width 22.1 % (11.8-14.3)
[2021-03-27 07:25] LABS: Chloride 106 mmol/L (98-107); Potassium 4.2 mmol/L (3.5-5.1); Sodium 139 mmol/L (136-145)
[2021-03-27 07:30] LABS: Anion Gap 6 (5-15); Blood Urea Nitrogen 27 mg/dL (7-18); Carbon Dioxide 27 mmol/L (21-32); Glucose 159 mg/dL (74-106)
[2021-03-27 07:31] LABS: Alanine Aminotransferase < 6 U/L (13-56); Albumin 1.3 g/dL (3.4-5.0); Aspartate Aminotransferase 5 U/L (15-37); BUN/Creatinine Ratio 50.9; Calcium 8.4 mg/dL (8.5-10.1); GFR African American 146 mL/min; GFR Non-African American 121 mL/min; Magnesium 2.5 mg/dL (1.6-2.6)
[2021-03-27 07:34] LABS: Alkaline Phosphatase 133 U/L (45-117); Bilirubin, Total 1.3 mg/dL (0.2-1.0); Phosphorus 2.7 mg/dL (2.5-4.90); Total Protein 6.2 g/dL (6.4-8.2)
[2021-03-27 08:30] VITALS: BP_SYST 137; BP_SYST 149; BP_DIAS 75
[2021-03-27] MEDS: ERGOCALCIFEROL 50,000 UNIT(1.25MG) CAP PO SCH (09:15)
[2021-03-27] MEDS: METOPROLOL SUCCINATE XL 50 MG TAB PO SCH (10:58)
[2021-03-27] MEDS: SODIUM CHLOR 0.9% PF (SALINE LOCK) 10ML VIAL/SYR IV SCH ×2 (11:00→20:51)
[2021-03-27] MEDS: PANTOPRAZOLE 40 MG/10 ML VIAL INJ IV SCH (11:01)
[2021-03-27] MEDS: ENOXAPARIN SOD 40 MG/0.4 ML SYRINGE SC SCH (11:02)
[2021-03-27 12:30] VITALS: BP 129/64
[2021-03-27] MEDS ORDERED: GASTROGRAFIN 120 ML SOL ONE (13:06)
[2021-03-27 16:43] VITALS: BP 129/64
[2021-03-27 17:00] VITALS: BP 128/78
[2021-03-27] MEDS: ONDANSETRON HCL 4 MG/2 ML VIAL IV PRN (19:11)
[2021-03-27] MEDS ORDERED: TPN PER PHARMACY IV NR ×10 (20:00)
[2021-03-28] MEDS: ALBUTEROL SULF 2.5 MG/0.5ML(0.5%) NEB SOLN NEB SCH ×4 (00:09→17:59)
[2021-03-28] MEDS: IPRATROPIUM BROM 0.5 MG/2.5ML INH SOL NEB SCH ×4 (00:09→17:59)
[2021-03-28] MEDS: ACCU-CHEK COMFORT CURVE STRIP VI SCH ×5 (00:15→23:44)
[2021-03-28] MEDS: PIPERACILLIN-TAZOB 3.375GM 100 ML IV SCH ×5 (00:15→23:44)
[2021-03-28 05:00] VITALS: BP 160/80
[2021-03-28] MEDS: InsuLIN REG 1unit/0.01ml Soln (100units/ml) SC SCH ×4 (06:00→17:49)
[2021-03-28] MEDS: HYDROmorphone HCL 2 MG/ML VL IV PRN ×4 (06:45→21:02)
[2021-03-28 07:20] LABS: Basophils # (auto) 0 10 ^3/uL (0-0.2); Eosinophils # (auto) 0 10 ^3/uL (0-0.8); Hemoglobin 8.1 g/dL (12.2-16.2); Lymphocytes # (auto) 0.8 10 ^3/uL (0.4-5.4); Monocytes # (auto) 0.7 10 ^3/uL (0-1.3); Neutrophils % (auto) 89.9 % (37.0-80.0)
[2021-03-28 07:22] LABS: Basophils % (auto) 0.2 % (0.0-2.0); Eosinophils % (auto) 0.1 % (0.0-7.0); Hematocrit 25.4 % (36.0-46.0); Lymphocytes % (auto) 5.3 % (10.0-50.0); Mean Corpuscular Hemoglobin 26.3 pg (28.0-32.0); Monocytes % (auto) 4.5 % (0.0-12.0); Neutrophils # (auto) 13.7 10 ^3/uL (1.6-8.6); White Blood Cell 15.2 10^3/uL (4.4-10.8)
[2021-03-28 07:35] LABS: Red Cell Distribution Width 22.1 % (11.8-14.3)
[2021-03-28 07:40] LABS: Albumin 1.4 g/dL (3.4-5.0); Calcium 8.6 mg/dL (8.5-10.1); Magnesium 2.7 mg/dL (1.6-2.6); Potassium 3.9 mmol/L (3.5-5.1)
[2021-03-28 07:43] LABS: Bilirubin, Total 1.5 mg/dL (0.2-1.0); Phosphorus 3.3 mg/dL (2.5-4.90); Total Protein 6.8 g/dL (6.4-8.2)
[2021-03-28 09:00] VITALS: BP 162/82
[2021-03-28] MEDS: ENOXAPARIN SOD 40 MG/0.4 ML SYRINGE SC SCH (09:31)
[2021-03-28] MEDS: SODIUM CHLOR 0.9% PF (SALINE LOCK) 10ML VIAL/SYR IV SCH ×2 (09:31→22:10)
[2021-03-28] MEDS: PANTOPRAZOLE 40 MG/10 ML VIAL INJ IV SCH (09:31)
[2021-03-28] MEDS: hydrALAZINE HCL 20 MG/ML VL IV PRN (09:32)
[2021-03-28] MEDS: METOPROLOL SUCCINATE XL 50 MG TAB PO SCH (10:00)
[2021-03-28] MEDS ORDERED: IOHEXOL 300 MG/ML 100ML BOTTLE IJ ONE (14:48)
[2021-03-28 17:00] VITALS: BP 156/75
[2021-03-28] MEDS: METOCLOPRAMIDE HCL 5MG/ml INJ 2ml VIAL IV SCH ×2 (17:41→23:43)
[2021-03-28] MEDS ORDERED: TPN PER PHARMACY IV NR ×9 (20:00)
[2021-03-28 22:29] VITALS: BP 136/67
[2021-03-29] MEDS: IPRATROPIUM BROM 0.5 MG/2.5ML INH SOL NEB SCH ×4 (00:07→18:32)
[2021-03-29] MEDS: ALBUTEROL SULF 2.5 MG/0.5ML(0.5%) NEB SOLN NEB SCH ×4 (00:07→18:32)
[2021-03-29] MEDS: HYDROmorphone HCL 2 MG/ML VL IV PRN ×3 (03:06→20:25)
[2021-03-29 05:04] VITALS: BP 145/60
[2021-03-29 05:34] LABS: Basophils # (auto) 0.1 10 ^3/uL (0-0.2); Basophils % (auto) 0.5 % (0.0-2.0); Eosinophils # (auto) 0 10 ^3/uL (0-0.8); Hemoglobin 7.5 g/dL (12.2-16.2); Monocytes # (auto) 0.6 10 ^3/uL (0-1.3)
[2021-03-29 05:38] LABS: Eosinophils % (auto) 0.2 % (0.0-7.0); Lymphocytes # (auto) 0.6 10 ^3/uL (0.4-5.4); Lymphocytes % (auto) 4.5 % (10.0-50.0); Mean Corpuscular Hemoglobin 27.1 pg (28.0-32.0); Mean Corpuscular Hgb Conc. 32.8 g/dL (32.0-36.0); Mean Corpuscular Volume 82.7 fL (80.0-100.0); Monocytes % (auto) 4.4 % (0.0-12.0); Neutrophils # (auto) 11.7 10 ^3/uL (1.6-8.6); Neutrophils % (auto) 90.4 % (37.0-80.0); Red Blood Cells 2.78 10^6/uL (4.0-5.20); Red Cell Distribution Width 22.5 % (11.8-14.3)
[2021-03-29 05:51] LABS: Albumin 1.3 g/dL (3.4-5.0); Calcium 8.5 mg/dL (8.5-10.1); Magnesium 2.6 mg/dL (1.6-2.6); Potassium 4.1 mmol/L (3.5-5.1)
[2021-03-29 05:56] LABS: BUN/Creatinine Ratio 57.7; Bilirubin, Total 1.8 mg/dL (0.2-1.0); Phosphorus 3.9 mg/dL (2.5-4.90); Pre Albumin 9.6 mg/dL (20.0-40.0); Total Protein 6.4 g/dL (6.4-8.2)
[2021-03-29] MEDS: InsuLIN REG 1unit/0.01ml Soln (100units/ml) SC SCH ×4 (06:00→16:39)
[2021-03-29] MEDS: ACCU-CHEK COMFORT CURVE STRIP VI SCH ×4 (06:00→23:45)
[2021-03-29] MEDS: METOCLOPRAMIDE HCL 5MG/ml INJ 2ml VIAL IV SCH ×4 (06:47→23:45)
[2021-03-29] MEDS: PIPERACILLIN-TAZOB 3.375GM 100 ML IV SCH ×4 (06:47→23:45)
[2021-03-29 08:32] VITALS: BP 147/69
[2021-03-29] MEDS: METOPROLOL SUCCINATE XL 50 MG TAB PO SCH (09:29)
[2021-03-29] MEDS: PANTOPRAZOLE 40 MG/10 ML VIAL INJ IV SCH (09:30)
[2021-03-29] MEDS: SODIUM CHLOR 0.9% PF (SALINE LOCK) 10ML VIAL/SYR IV SCH ×2 (09:30→21:35)
[2021-03-29] MEDS: ENOXAPARIN SOD 40 MG/0.4 ML SYRINGE SC SCH (09:30)
[2021-03-29] MEDS: HYDROcodone-ACET 5/325MG TAB PO PRN (10:41)
[2021-03-29 12:31] VITALS: BP 153/75
[2021-03-29 16:42] VITALS: BP 140/68
[2021-03-29] MEDS ORDERED: TPN PER PHARMACY IV NR ×8 (20:00)
[2021-03-29 22:20] VITALS: BP 136/68
[2021-03-30] VITALS (9 sets, daily range): BP systolic 90–158; BP diastolic 48–83
[2021-03-30] MEDS: ALBUTEROL SULF 2.5 MG/0.5ML(0.5%) NEB SOLN NEB SCH ×4 (00:11→17:49)
[2021-03-30] MEDS: IPRATROPIUM BROM 0.5 MG/2.5ML INH SOL NEB SCH ×4 (00:11→17:49)
[2021-03-30] MEDS: InsuLIN REG 1unit/0.01ml Soln (100units/ml) SC SCH ×5 (00:39→23:57)
[2021-03-30] MEDS: HYDROmorphone HCL 2 MG/ML VL IV PRN ×4 (00:43→23:51)
[2021-03-30 05:32] LABS: Basophils # (auto) 0.1 10 ^3/uL (0-0.2); Basophils % (auto) 0.6 % (0.0-2.0); Eosinophils # (auto) 0 10 ^3/uL (0-0.8); Eosinophils % (auto) 0.3 % (0.0-7.0); Hematocrit 25.1 % (36.0-46.0); Hemoglobin 8.1 g/dL (12.2-16.2); Lymphocytes # (auto) 0.8 10 ^3/uL (0.4-5.4); Mean Corpuscular Hemoglobin 26.6 pg (28.0-32.0); Mean Corpuscular Hgb Conc. 32.4 g/dL (32.0-36.0); Mean Corpuscular Volume 82.3 fL (80.0-100.0); Monocytes # (auto) 0.6 10 ^3/uL (0-1.3); Monocytes % (auto) 3.8 % (0.0-12.0); Neutrophils # (auto) 13.6 10 ^3/uL (1.6-8.6); Neutrophils % (auto) 90.3 % (37.0-80.0); Nucleated Red Blood Cells % 0.1 %; Red Blood Cells 3.05 10^6/uL (4.0-5.20); Red Cell Distribution Width 22.5 % (11.8-14.3); White Blood Cell 15.1 10^3/uL (4.4-10.8)
[2021-03-30] MEDS: METOCLOPRAMIDE HCL 5MG/ml INJ 2ml VIAL IV SCH ×4 (05:41→23:41)
[2021-03-30] MEDS: PIPERACILLIN-TAZOB 3.375GM 100 ML IV SCH ×4 (05:42→23:56)
[2021-03-30] MEDS: ACCU-CHEK COMFORT CURVE STRIP VI SCH ×4 (05:42→23:56)
[2021-03-30 05:58] LABS: Albumin 1.4 g/dL (3.4-5.0); BUN/Creatinine Ratio 48.2; Calcium 8.7 mg/dL (8.5-10.1); Magnesium 2.4 mg/dL (1.6-2.6); Potassium 4.1 mmol/L (3.5-5.1)
[2021-03-30 06:01] LABS: Bilirubin, Total 2.8 mg/dL (0.2-1.0); Phosphorus 3.2 mg/dL (2.5-4.90); Total Protein 7.1 g/dL (6.4-8.2)
[2021-03-30] MEDS: SODIUM CHLOR 0.9% PF (SALINE LOCK) 10ML VIAL/SYR IV SCH ×2 (10:15→21:03)
[2021-03-30] MEDS: PANTOPRAZOLE 40 MG/10 ML VIAL INJ IV SCH (10:15)
[2021-03-30] MEDS: ENOXAPARIN SOD 40 MG/0.4 ML SYRINGE SC SCH (10:15)
[2021-03-30] MEDS: METOPROLOL SUCCINATE XL 50 MG TAB PO SCH (10:15)
[2021-03-30] MEDS ORDERED: GASTROGRAFIN 120 ML SOL ONE (11:51)
[2021-03-30] MEDS: KETOROLAC TROMETH 30 MG/ML 1ML VIAL IV PRN ×2 (12:20→17:41)
[2021-03-30] MEDS ORDERED: TPN PER PHARMACY IV NR ×9 (20:00)
[2021-03-31] VITALS (60 sets, daily range): BP systolic 72–128; BP diastolic 37–72
[2021-03-31] MEDS: ALBUTEROL SULF 2.5 MG/0.5ML(0.5%) NEB SOLN NEB SCH ×4 (00:07→18:16)
[2021-03-31] MEDS: IPRATROPIUM BROM 0.5 MG/2.5ML INH SOL NEB SCH ×4 (00:07→18:16)
[2021-03-31] MEDS ORDERED: ALBUMIN 5% 250 ML IV ONE ×2 (03:45→10:15)
[2021-03-31 04:01] LABS: Hematocrit 25.7 % (36.0-46.0); Hemoglobin 8.1 g/dL (12.2-16.2)
[2021-03-31 04:23] LABS: Potassium 3.7 mmol/L (3.5-5.1)
[2021-03-31 04:32] LABS: Albumin 1.2 g/dL (3.4-5.0); BUN/Creatinine Ratio 30.9; Calcium 8.6 mg/dL (8.5-10.1)
[2021-03-31 04:41] LABS: Bilirubin, Total 4.2 mg/dL (0.2-1.0); Phosphorus 3.5 mg/dL (2.5-4.90); Total Protein 6.2 g/dL (6.4-8.2)
[2021-03-31] MEDS: METOCLOPRAMIDE HCL 5MG/ml INJ 2ml VIAL IV SCH ×4 (05:37→23:32)
[2021-03-31] MEDS: HYDROmorphone HCL 2 MG/ML VL IV PRN ×4 (05:45→23:30)
[2021-03-31] MEDS: PIPERACILLIN-TAZOB 3.375GM 100 ML IV SCH (05:47)
[2021-03-31] MEDS: ACCU-CHEK COMFORT CURVE STRIP VI SCH ×4 (05:59→23:39)
[2021-03-31] MEDS: InsuLIN REG 1unit/0.01ml Soln (100units/ml) SC SCH ×4 (06:06→23:41)
[2021-03-31] MEDS ORDERED: NOREPINEPHRINE 8 MG/250ML KIT 250 ML IV ONE (10:15)
[2021-03-31] MEDS: NOREPINEPHRINE 8 MG/250ML KIT 250 ML IV SCH (10:41)
[2021-03-31] MEDS: PANTOPRAZOLE 40 MG/10 ML VIAL INJ IV SCH (10:42)
[2021-03-31] MEDS: SODIUM CHLOR 0.9% PF (SALINE LOCK) 10ML VIAL/SYR IV SCH ×2 (10:43→22:14)
[2021-03-31] MEDS: CEFEPIME 1 GM in SODIUM CHL 0.9% 50 ML IV SCH ×2 (13:48→23:35)
[2021-03-31] MEDS: SODIUM CHLORIDE 0.9% 1,000 ML IV SCH (15:22)
[2021-03-31 16:04] LABS: Urine WBC None Seen /hpf (0 - 5)
[2021-03-31 16:28] LABS: Urine Amorphous Crystal FEW /hpf (None Seen); Urine Bacteria NONE SEEN /hpf (None Seen); Urine Blood 2+ /uL (Negative); Urine Specific Gravity 1.021 (1.001-1.035)
[2021-03-31] MEDS ORDERED: TPN PER PHARMACY IV NR ×10 (20:00)
[2021-03-31] MEDS: LINEZOLID 600MG/300ML 300 ML IV SCH (21:00)
[2021-04-01] VITALS (82 sets, daily range): BP systolic 90–151; BP diastolic 42–70
[2021-04-01] MEDS: ALBUTEROL SULF 2.5 MG/0.5ML(0.5%) NEB SOLN NEB SCH ×4 (00:22→18:41)
[2021-04-01] MEDS: IPRATROPIUM BROM 0.5 MG/2.5ML INH SOL NEB SCH ×4 (00:22→18:40)
[2021-04-01] MEDS: SODIUM CHLORIDE 0.9% 1,000 ML IV SCH ×2 (01:05→12:03)
[2021-04-01] MEDS: METOCLOPRAMIDE HCL 5MG/ml INJ 2ml VIAL IV SCH (05:36)
[2021-04-01] MEDS: ACCU-CHEK COMFORT CURVE STRIP VI SCH ×3 (05:44→17:13)
[2021-04-01 05:46] LABS: Monocytes # (auto) 0.1 10 ^3/uL (0-1.3); Monocytes % (auto) 1.2 % (0.0-12.0); Red Blood Cells 2.66 10^6/uL (4.0-5.20)
[2021-04-01] MEDS: InsuLIN REG 1unit/0.01ml Soln (100units/ml) SC SCH ×3 (05:47→17:13)
[2021-04-01 05:48] LABS: Basophils # (auto) 0.1 10 ^3/uL (0-0.2); Basophils % (auto) 1.1 % (0.0-2.0); Eosinophils # (auto) 0.1 10 ^3/uL (0-0.8); Eosinophils % (auto) 0.9 % (0.0-7.0); Hematocrit 21.6 % (36.0-46.0); Lymphocytes # (auto) 0.4 10 ^3/uL (0.4-5.4); Lymphocytes % (auto) 3.3 % (10.0-50.0); Mean Corpuscular Hemoglobin 26.4 pg (28.0-32.0); Mean Corpuscular Hgb Conc. 32.6 g/dL (32.0-36.0); Neutrophils % (auto) 93.5 % (37.0-80.0); Nucleated Red Blood Cells % 0.2 %; White Blood Cell 11.7 10^3/uL (4.4-10.8)
[2021-04-01 05:51] LABS: Red Cell Distribution Width 22.8 % (11.8-14.3)
[2021-04-01] MEDS: HYDROmorphone HCL 2 MG/ML VL IV PRN ×4 (06:01→20:28)
[2021-04-01 06:02] LABS: Albumin 1.4 g/dL (3.4-5.0); BUN/Creatinine Ratio 39.9; Calcium 8.1 mg/dL (8.5-10.1); Magnesium 1.9 mg/dL (1.6-2.6); Potassium 3.3 mmol/L (3.5-5.1)
[2021-04-01 06:19] LABS: Bilirubin, Total 2.9 mg/dL (0.2-1.0); Phosphorus 2.6 mg/dL (2.5-4.90); Total Protein 5.9 g/dL (6.4-8.2)
[2021-04-01] MEDS: LINEZOLID 600MG/300ML 300 ML IV SCH ×2 (07:59→20:48)
[2021-04-01] MEDS: NOREPINEPHRINE 8 MG/250ML KIT 250 ML IV SCH (08:02)
[2021-04-01] MEDS: PANTOPRAZOLE 40 MG/10 ML VIAL INJ IV SCH (08:02)
[2021-04-01] MEDS: SODIUM CHLOR 0.9% PF (SALINE LOCK) 10ML VIAL/SYR IV SCH ×2 (08:02→22:00)
[2021-04-01] MEDS: CEFEPIME 1 GM in SODIUM CHL 0.9% 50 ML IV SCH ×2 (09:08→20:48)
[2021-04-01] MEDS ORDERED: FUROSEMIDE 40 MG/4 ML VIAL IV ONE (11:15)
[2021-04-01] MEDS ORDERED: POTASSIUM PHOSPHATE 11 MEQ in SODIUM CHL 0.9% 100 ML IV ONE (12:30)
[2021-04-01] MEDS ORDERED: TPN PER PHARMACY IV NR ×9 (20:00)
[2021-04-02] VITALS (70 sets, daily range): BP systolic 50–159; BP diastolic 33–84
[2021-04-02] MEDS: ALBUTEROL SULF 2.5 MG/0.5ML(0.5%) NEB SOLN NEB SCH ×2 (00:08→18:20)
[2021-04-02] MEDS: IPRATROPIUM BROM 0.5 MG/2.5ML INH SOL NEB SCH ×2 (00:08→18:20)
[2021-04-02] MEDS: ACCU-CHEK COMFORT CURVE STRIP VI SCH ×4 (00:19→17:23)
[2021-04-02] MEDS: InsuLIN REG 1unit/0.01ml Soln (100units/ml) SC SCH ×4 (00:23→17:24)
[2021-04-02 01:03] LABS: INR 1.08 (0.9-1.15); Partial Thromboplastin Time 27.4 sec (23.0-31.2)
[2021-04-02] MEDS: HYDROmorphone HCL 2 MG/ML VL IV PRN ×2 (03:44→07:46)
[2021-04-02 05:12] LABS: Hematocrit 28.3 % (36.0-46.0); Hemoglobin 9.5 g/dL (12.2-16.2); Mean Corpuscular Hemoglobin 27.3 pg (28.0-32.0); Mean Corpuscular Hgb Conc. 33.7 g/dL (32.0-36.0); Mean Corpuscular Volume 81.1 fL (80.0-100.0); Red Blood Cells 3.49 10^6/uL (4.0-5.20); White Blood Cell 10.2 10^3/uL (4.4-10.8)
[2021-04-02 05:33] LABS: Albumin 1.3 g/dL (3.4-5.0); BUN/Creatinine Ratio 41.3; Calcium 8.4 mg/dL (8.5-10.1); Potassium 3.6 mmol/L (3.5-5.1)
[2021-04-02 05:36] LABS: Bilirubin, Total 3.7 mg/dL (0.2-1.0); Phosphorus 3.8 mg/dL (2.5-4.90)
[2021-04-02 06:03] LABS: Red Cell Distribution Width 20.7 % (11.8-14.3)
[2021-04-02 06:04] LABS: Basophils % (manual) 0 (0.0-2.0); Blast Cells 0; Eosinophils % (manual) 0 (0-7); Monocytes % (manual) 0 (0-12); Promyelocytes % 0; Reactive Lymphocytes 0
[2021-04-02 06:50] LABS: Band Neutrophils % (manual) 34; Lymphocytes % (manual) 3 (10.0-50.0); Metamyelocytes % 2; Myelocytes % 2
[2021-04-02] MEDS: LINEZOLID 600MG/300ML 300 ML IV SCH (08:05)
[2021-04-02] MEDS: SODIUM CHLORIDE 0.9% 1,000 ML IV SCH (09:35)
[2021-04-02] MEDS: NOREPINEPHRINE 8 MG/250ML KIT 250 ML IV SCH (09:39)
[2021-04-02] MEDS: PANTOPRAZOLE 40 MG/10 ML VIAL INJ IV SCH (09:40)
[2021-04-02] MEDS: CEFEPIME 1 GM in SODIUM CHL 0.9% 50 ML IV SCH (09:40)
[2021-04-02] MEDS: SODIUM CHLOR 0.9% PF (SALINE LOCK) 10ML VIAL/SYR IV SCH (09:40)
[2021-04-02] MEDS ORDERED: PHENYLEPHRINE HCL 10 MG/ML VL IV ONE (09:43)
[2021-04-02] MEDS ORDERED: HYDROmorphone HCL 2 MG/ML VL ONE ×2 (09:45→10:57)
[2021-04-02] MEDS ORDERED: fentaNYL CITRATE 100 MCG/2 ML VL ONE (09:46)
[2021-04-02] MEDS ORDERED: MIDAZOLAM HCL 2MG/2ML 2ml VIAL (1mg/ml) ONE (09:46)
[2021-04-02] MEDS ORDERED: POVIDONE IODINE 10 % TOPICAL OINT 30GM TOP ONE (09:46)
[2021-04-02] MEDS ORDERED: SUCCINYLCHOLINE CHLORIDE 20 MG/ML 10ML VIAL IV ONE (09:46)
[2021-04-02] MEDS ORDERED: fentaNYL CITRATE 5 ML ONE ×2 (09:46→11:16)
[2021-04-02] MEDS ORDERED: ROCURONIUM 10MG/ML 10ML VIAL IV ONE ×2 (09:46→11:17)
[2021-04-02] MEDS ORDERED: HEPARIN 1,000 UNITS/ml 1ML VIAL ONE (10:19)
[2021-04-02] MEDS ORDERED: ALBUMIN 5% 250 ML IV ONE (10:43)
[2021-04-02] MEDS ORDERED: ETOMIDATE (2MG/ML) 20ML VIAL IV ONE (10:57)
[2021-04-02] MEDS ORDERED: CALCIUM CHLOR(10%) 100MG/ML 10ML SYRINGE IV ONE (11:25)
[2021-04-02] MEDS ORDERED: HYDROmorphone HCL 2 MG/ML VL IV PRN (11:30)
[2021-04-02] MEDS ORDERED: ePHEDrine SULFATE 50 MG/ML AMP IV PRN (11:30)
[2021-04-02] MEDS ORDERED: LABETALOL HCL 5 MG/ML 4ML SYRINGE IV PRN (11:30)
[2021-04-02] MEDS ORDERED: hydrALAZINE HCL 20 MG/ML VL IV PRN (11:30)
[2021-04-02] MEDS ORDERED: ONDANSETRON HCL 4 MG/2 ML VIAL IV PRN (11:30)
[2021-04-02] MEDS ORDERED: MIDAZOLAM HCL 2MG/2ML 2ml VIAL (1mg/ml) IV PRN (11:30)
[2021-04-02] MEDS ORDERED: MORPHINE SULFATE 4 MG/ML SYR/VIAL IV PRN (11:30)
[2021-04-02] MEDS ORDERED: SODIUM BICARBONATE 8.4% INJ 50ML SYRINGE IV ONE (12:39)
[2021-04-02] MEDS ORDERED: DOPamine 1600MCG/ML D5W 250 ML IV SCH (13:15)
[2021-04-02] MEDS ORDERED: DexAMETHasone SOD PHOS 10MG/1ML VIAL INJ IV ONE (13:59)
[2021-04-02] MEDS: MIDAZOLAM DRIP 50 mg/50mL 50 ML IV SCH (14:19)
[2021-04-02] MEDS: fentaNYL Drip 2500mCg/250mlNS 250 ML IV SCH (14:21)
[2021-04-02] MEDS: SODIUM FERR GLUC 62.5MG/5ML 125 MG in SODIUM CHL 0.9% 100 ML IV SCH (14:22)
[2021-04-02] MEDS: LACTATED RINGER'S 1,000 ML IV SCH ×2 (15:25→22:00)
[2021-04-02] MEDS ORDERED: SODIUM CHLORIDE 0.9% 250 ML IV ONE (15:45)
[2021-04-02] MEDS ORDERED: TPN PER PHARMACY IV NR ×9 (20:00)
[2021-04-03] VITALS (94 sets, daily range): BP systolic 70–130; BP diastolic 38–68
[2021-04-03] MEDS: ALBUTEROL SULF 2.5 MG/0.5ML(0.5%) NEB SOLN NEB SCH ×4 (00:52→18:29)
[2021-04-03] MEDS: IPRATROPIUM BROM 0.5 MG/2.5ML INH SOL NEB SCH ×4 (00:52→18:29)
[2021-04-03] MEDS: LINEZOLID 600MG/300ML 300 ML IV SCH ×3 (01:41→20:53)
[2021-04-03] MEDS: CEFEPIME 1 GM in SODIUM CHL 0.9% 50 ML IV SCH ×3 (01:42→21:52)
[2021-04-03] MEDS: SODIUM CHLOR 0.9% PF (SALINE LOCK) 10ML VIAL/SYR IV SCH ×3 (01:43→21:43)
[2021-04-03] MEDS: PANTOPRAZOLE 40 MG/10 ML VIAL INJ IV SCH ×3 (01:43→21:52)
[2021-04-03] MEDS: LACTATED RINGER'S 1,000 ML IV SCH ×2 (03:35→09:16)
[2021-04-03 04:52] LABS: Hemoglobin 7.2 g/dL (12.2-16.2); Red Cell Distribution Width 19.4 % (11.8-14.3)
[2021-04-03 04:55] LABS: Hematocrit 20.9 % (36.0-46.0); Mean Corpuscular Hemoglobin 28.2 pg (28.0-32.0); Mean Corpuscular Hgb Conc. 34.4 g/dL (32.0-36.0); Mean Corpuscular Volume 81.8 fL (80.0-100.0); Red Blood Cells 2.56 10^6/uL (4.0-5.20); White Blood Cell 9.2 10^3/uL (4.4-10.8)
[2021-04-03 04:59] LABS: Basophils % (manual) 0 (0.0-2.0); Blast Cells 0; Eosinophils % (manual) 0 (0-7); Monocytes % (manual) 0 (0-12); Promyelocytes % 0; Reactive Lymphocytes 0
[2021-04-03 05:14] LABS: Potassium 4.2 mmol/L (3.5-5.1)
[2021-04-03 05:20] LABS: BUN/Creatinine Ratio 46.1; Bilirubin, Total 1.8 mg/dL (0.2-1.0); Calcium 7.7 mg/dL (8.5-10.1); Magnesium 1.8 mg/dL (1.6-2.6); Phosphorus 4.4 mg/dL (2.5-4.90); Total Protein 4.6 g/dL (6.4-8.2)
[2021-04-03] MEDS: ACCU-CHEK COMFORT CURVE STRIP VI SCH ×5 (05:57→17:39)
[2021-04-03] MEDS: InsuLIN REG 1unit/0.01ml Soln (100units/ml) SC SCH ×4 (06:00→17:36)
[2021-04-03 06:34] LABS: Band Neutrophils % (manual) 23; Lymphocytes % (manual) 5 (10.0-50.0); Metamyelocytes % 3; Myelocytes % 1
[2021-04-03] MEDS: NOREPINEPHRINE 8 MG/250ML KIT 250 ML IV SCH (10:15)
[2021-04-03] MEDS ORDERED: FUROSEMIDE 40 MG/4 ML VIAL IV ONE (10:30)
[2021-04-03] MEDS: SODIUM FERR GLUC 62.5MG/5ML 125 MG in SODIUM CHL 0.9% 100 ML IV SCH (12:00)
[2021-04-03] MEDS: MIDAZOLAM DRIP 50 mg/50mL 50 ML IV SCH ×2 (14:15→21:44)
[2021-04-03] MEDS: fentaNYL Drip 2500mCg/250mlNS 250 ML IV SCH (14:15)
[2021-04-03] MEDS: TPN PER PHARMACY IV NR ×9 (20:55)
[2021-04-03] MEDS: INSULIN LANTUS (GLARGINE) 1 /0.01ml (100units/ml) SC SCH (21:57)
[2021-04-04] VITALS (100 sets, daily range): BP systolic 98–145; BP diastolic 45–69
[2021-04-04] MEDS: ALBUTEROL SULF 2.5 MG/0.5ML(0.5%) NEB SOLN NEB SCH ×4 (00:05→20:40)
[2021-04-04] MEDS: IPRATROPIUM BROM 0.5 MG/2.5ML INH SOL NEB SCH ×4 (00:06→20:40)
[2021-04-04] MEDS: InsuLIN REG 1unit/0.01ml Soln (100units/ml) SC SCH ×4 (00:25→18:00)
[2021-04-04] MEDS: fentaNYL Drip 2500mCg/250mlNS 250 ML IV SCH (00:26)
[2021-04-04] MEDS: LACTATED RINGER'S 1,000 ML IV SCH (02:22)
[2021-04-04] MEDS: ACCU-CHEK COMFORT CURVE STRIP VI SCH ×3 (05:38→18:00)
[2021-04-04 05:40] LABS: Hematocrit 21.1 % (36.0-46.0); Hemoglobin 7.2 g/dL (12.2-16.2); Red Blood Cells 2.53 10^6/uL (4.0-5.20)
[2021-04-04 05:42] LABS: Mean Corpuscular Hemoglobin 28.4 pg (28.0-32.0); Mean Corpuscular Volume 83.6 fL (80.0-100.0); White Blood Cell 8.6 10^3/uL (4.4-10.8)
[2021-04-04 05:53] LABS: Albumin 1.2 g/dL (3.4-5.0); BUN/Creatinine Ratio 45.2; Calcium 7.9 mg/dL (8.5-10.1); Potassium 3.8 mmol/L (3.5-5.1)
[2021-04-04 05:56] LABS: Basophils % (manual) 0 (0.0-2.0); Eosinophils % (manual) 0 (0-7); Promyelocytes % 0; Reactive Lymphocytes 0
[2021-04-04 05:59] LABS: Bilirubin, Total 1.1 mg/dL (0.2-1.0); Phosphorus 3.5 mg/dL (2.5-4.90); Total Protein 4.7 g/dL (6.4-8.2)
[2021-04-04 06:54] LABS: Band Neutrophils % (manual) 17; Blast Cells 1; Lymphocytes % (manual) 8 (10.0-50.0); Metamyelocytes % 1; Monocytes % (manual) 5 (0-12); Myelocytes % 7
[2021-04-04] MEDS: LINEZOLID 600MG/300ML 300 ML IV SCH ×2 (08:00→20:12)
[2021-04-04] MEDS: NOREPINEPHRINE 8 MG/250ML KIT 250 ML IV SCH (10:15)
[2021-04-04] MEDS: CEFEPIME 1 GM in SODIUM CHL 0.9% 50 ML IV SCH ×2 (10:38→21:52)
[2021-04-04] MEDS: PANTOPRAZOLE 40 MG/10 ML VIAL INJ IV SCH ×2 (10:38→21:52)
[2021-04-04] MEDS: SODIUM CHLOR 0.9% PF (SALINE LOCK) 10ML VIAL/SYR IV SCH ×2 (10:38→21:52)
[2021-04-04] MEDS: SODIUM FERR GLUC 62.5MG/5ML 125 MG in SODIUM CHL 0.9% 100 ML IV SCH (12:00)
[2021-04-04] MEDS: TPN PER PHARMACY IV NR ×9 (19:59)
[2021-04-04] MEDS ORDERED: TPN PER PHARMACY IV NR ×10 (20:00)
[2021-04-04] MEDS: INSULIN LANTUS (GLARGINE) 1 /0.01ml (100units/ml) SC SCH (22:08)
[2021-04-05] VITALS (105 sets, daily range): BP systolic 94–162; BP diastolic 47–94
[2021-04-05] MEDS: ACCU-CHEK COMFORT CURVE STRIP VI SCH ×4 (00:29→18:12)
[2021-04-05] MEDS: InsuLIN REG 1unit/0.01ml Soln (100units/ml) SC SCH ×4 (00:30→18:00)
[2021-04-05] MEDS: IPRATROPIUM BROM 0.5 MG/2.5ML INH SOL NEB SCH ×4 (00:59→18:53)
[2021-04-05] MEDS: ALBUTEROL SULF 2.5 MG/0.5ML(0.5%) NEB SOLN NEB SCH ×4 (00:59→18:53)
[2021-04-05 05:25] LABS: Basophils # (auto) 0 10 ^3/uL (0-0.2); Basophils % (auto) 0.3 % (0.0-2.0); Eosinophils # (auto) 0.1 10 ^3/uL (0-0.8); Eosinophils % (auto) 0.5 % (0.0-7.0); Hematocrit 25.2 % (36.0-46.0); Hemoglobin 8.6 g/dL (12.2-16.2); Lymphocytes # (auto) 0.8 10 ^3/uL (0.4-5.4); Lymphocytes % (auto) 5.1 % (10.0-50.0); Mean Corpuscular Hemoglobin 28.6 pg (28.0-32.0); Mean Corpuscular Volume 84.2 fL (80.0-100.0); Monocytes # (auto) 0.2 10 ^3/uL (0-1.3); Monocytes % (auto) 1.6 % (0.0-12.0); Neutrophils # (auto) 13.8 10 ^3/uL (1.6-8.6); Neutrophils % (auto) 92.5 % (37.0-80.0); Nucleated Red Blood Cells % 0.2 %; Red Cell Distribution Width 18.1 % (11.8-14.3); White Blood Cell 14.9 10^3/uL (4.4-10.8)
[2021-04-05 06:02] LABS: Albumin 1.2 g/dL (3.4-5.0); Calcium 7.7 mg/dL (8.5-10.1); Magnesium 1.9 mg/dL (1.6-2.6); Potassium 3.7 mmol/L (3.5-5.1)
[2021-04-05 06:06] LABS: Bilirubin, Total 1.8 mg/dL (0.2-1.0); Phosphorus 3.1 mg/dL (2.5-4.90); Total Protein 5.2 g/dL (6.4-8.2)
[2021-04-05] MEDS ORDERED: D5W 5% 1,000 ML IV SCH (09:00)
[2021-04-05] MEDS: PANTOPRAZOLE 40 MG/10 ML VIAL INJ IV SCH ×2 (09:34→22:05)
[2021-04-05] MEDS: LINEZOLID 600MG/300ML 300 ML IV SCH ×2 (09:34→19:34)
[2021-04-05] MEDS: CEFEPIME 1 GM in SODIUM CHL 0.9% 50 ML IV SCH ×2 (09:34→22:04)
[2021-04-05] MEDS: SODIUM CHLOR 0.9% PF (SALINE LOCK) 10ML VIAL/SYR IV SCH ×2 (09:35→22:04)
[2021-04-05] MEDS: NOREPINEPHRINE 8 MG/250ML KIT 250 ML IV SCH (10:15)
[2021-04-05] MEDS: SODIUM FERR GLUC 62.5MG/5ML 125 MG in SODIUM CHL 0.9% 100 ML IV SCH (12:00)
[2021-04-05] MEDS: fentaNYL Drip 2500mCg/250mlNS 250 ML IV SCH (14:15)
[2021-04-05] MEDS: MIDAZOLAM DRIP 50 mg/50mL 50 ML IV SCH (14:15)
[2021-04-05] MEDS: HYDROmorphone HCL 2 MG/ML VL IV PRN ×2 (16:16→21:06)
[2021-04-05] MEDS ORDERED: TPN PER PHARMACY IV NR ×10 (20:00)
[2021-04-05] MEDS: INSULIN LANTUS (GLARGINE) 1 /0.01ml (100units/ml) SC SCH (22:00)
[2021-04-06] VITALS (75 sets, daily range): BP systolic 91–183; BP diastolic 46–104
[2021-04-06] MEDS: ALBUTEROL SULF 2.5 MG/0.5ML(0.5%) NEB SOLN NEB SCH ×4 (00:18→18:28)
[2021-04-06] MEDS: IPRATROPIUM BROM 0.5 MG/2.5ML INH SOL NEB SCH ×4 (00:18→18:28)
[2021-04-06] MEDS: ACCU-CHEK COMFORT CURVE STRIP VI SCH ×4 (00:24→18:05)
[2021-04-06] MEDS: InsuLIN REG 1unit/0.01ml Soln (100units/ml) SC SCH ×4 (00:26→18:29)
[2021-04-06] MEDS: HYDROmorphone HCL 2 MG/ML VL IV PRN ×4 (01:39→22:17)
[2021-04-06 05:23] LABS: Hematocrit 23.6 % (36.0-46.0); Hemoglobin 7.9 g/dL (12.2-16.2); Mean Corpuscular Hemoglobin 28.1 pg (28.0-32.0); Mean Corpuscular Hgb Conc. 33.7 g/dL (32.0-36.0); Mean Corpuscular Volume 83.6 fL (80.0-100.0); Red Blood Cells 2.82 10^6/uL (4.0-5.20); White Blood Cell 17.1 10^3/uL (4.4-10.8)
[2021-04-06 05:25] LABS: Basophils % (manual) 0 (0.0-2.0); Blast Cells 0; Promyelocytes % 0; Reactive Lymphocytes 0
[2021-04-06 05:41] LABS: Albumin 1.2 g/dL (3.4-5.0); Calcium 7.6 mg/dL (8.5-10.1); Potassium 3.8 mmol/L (3.5-5.1)
[2021-04-06 05:46] LABS: BUN/Creatinine Ratio 51.4; Bilirubin, Total 1.4 mg/dL (0.2-1.0); Magnesium 1.9 mg/dL (1.6-2.6); Phosphorus 3.7 mg/dL (2.5-4.90); Total Protein 5.1 g/dL (6.4-8.2)
[2021-04-06] MEDS: LINEZOLID 600MG/300ML 300 ML IV SCH (08:17)
[2021-04-06 08:22] LABS: Band Neutrophils % (manual) 9; Eosinophils % (manual) 1 (0-7); Lymphocytes % (manual) 9 (10.0-50.0); Metamyelocytes % 2; Monocytes % (manual) 5 (0-12); Myelocytes % 2
[2021-04-06] MEDS ORDERED: FUROSEMIDE 40 MG/4 ML VIAL IV ONE (09:00)
[2021-04-06] MEDS: PANTOPRAZOLE 40 MG/10 ML VIAL INJ IV SCH ×2 (09:08→22:02)
[2021-04-06] MEDS: NOREPINEPHRINE 8 MG/250ML KIT 250 ML IV SCH (10:15)
[2021-04-06] MEDS: SODIUM CHLOR 0.9% PF (SALINE LOCK) 10ML VIAL/SYR IV SCH ×2 (10:17→22:02)
[2021-04-06] MEDS: CEFEPIME 1 GM in SODIUM CHL 0.9% 50 ML IV SCH ×2 (10:44→22:02)
[2021-04-06 11:07] LABS: Urine Bacteria FEW /hpf (None Seen); Urine Blood TRACE /uL (Negative); Urine Budding Yeast MODERATE /hpf (None Seen); Urine Mucus FEW (None Seen); Urine Specific Gravity 1.006 (1.001-1.035); Urine WBC 4 /hpf (0 - 5)
[2021-04-06] MEDS: SODIUM FERR GLUC 62.5MG/5ML 125 MG in SODIUM CHL 0.9% 100 ML IV SCH (12:30)
[2021-04-06] MEDS: fentaNYL Drip 2500mCg/250mlNS 250 ML IV SCH (14:15)
[2021-04-06] MEDS: MIDAZOLAM DRIP 50 mg/50mL 50 ML IV SCH (14:15)
[2021-04-06] MEDS ORDERED: TPN PER PHARMACY IV NR ×12 (20:00)
[2021-04-06] MEDS: INSULIN LANTUS (GLARGINE) 1 /0.01ml (100units/ml) SC SCH (22:00)
[2021-04-07] VITALS (24 sets, daily range): BP systolic 134–180; BP diastolic 65–91
[2021-04-07] MEDS: IPRATROPIUM BROM 0.5 MG/2.5ML INH SOL NEB SCH ×4 (00:24→18:59)
[2021-04-07] MEDS: ALBUTEROL SULF 2.5 MG/0.5ML(0.5%) NEB SOLN NEB SCH ×4 (00:24→18:59)
[2021-04-07 04:46] LABS: Red Cell Distribution Width 17.7 % (11.8-14.3)
[2021-04-07 04:48] LABS: Hematocrit 23.4 % (36.0-46.0); Mean Corpuscular Hemoglobin 28.4 pg (28.0-32.0); Mean Corpuscular Volume 83.5 fL (80.0-100.0); White Blood Cell 20.7 10^3/uL (4.4-10.8)
[2021-04-07 05:04] LABS: Basophils % (manual) 0 (0.0-2.0); Blast Cells 0; Eosinophils % (manual) 0 (0-7); Monocytes % (manual) 0 (0-12); Promyelocytes % 0; Reactive Lymphocytes 0
[2021-04-07 05:05] LABS: Potassium 3.6 mmol/L (3.5-5.1)
[2021-04-07 05:15] LABS: Albumin 1.3 g/dL (3.4-5.0); BUN/Creatinine Ratio 49.7; Bilirubin, Total 1.2 mg/dL (0.2-1.0); Calcium 8.3 mg/dL (8.5-10.1); Magnesium 2.2 mg/dL (1.6-2.6); Phosphorus 3.8 mg/dL (2.5-4.90); Total Protein 5.7 g/dL (6.4-8.2)
[2021-04-07] MEDS: HYDROmorphone HCL 2 MG/ML VL IV PRN ×2 (05:22→15:18)
[2021-04-07 05:37] LABS: Band Neutrophils % (manual) 13; Lymphocytes % (manual) 4 (10.0-50.0); Metamyelocytes % 3; Myelocytes % 5
[2021-04-07] MEDS: ACCU-CHEK COMFORT CURVE STRIP VI SCH ×3 (06:21→12:08)
[2021-04-07] MEDS: InsuLIN REG 1unit/0.01ml Soln (100units/ml) SC SCH ×3 (06:28→12:22)
[2021-04-07] MEDS: PANTOPRAZOLE 40 MG/10 ML VIAL INJ IV SCH (10:00)
[2021-04-07] MEDS: NOREPINEPHRINE 8 MG/250ML KIT 250 ML IV SCH (10:15)
[2021-04-07] MEDS: SODIUM CHLOR 0.9% PF (SALINE LOCK) 10ML VIAL/SYR IV SCH ×2 (11:01→22:00)
[2021-04-07] MEDS: CEFEPIME 1 GM in SODIUM CHL 0.9% 50 ML IV SCH ×2 (11:01→21:53)
[2021-04-07] MEDS ORDERED: POTASSIUM CHL 20 Meq TABLET PO ONE (11:30)
[2021-04-07] MEDS ORDERED: FUROSEMIDE 40 MG/4 ML VIAL IV ONE (11:30)
[2021-04-07] MEDS: Ensure HIGH Protein Chocolate 8oz Bottle PO SCH ×2 (12:00→18:00)
[2021-04-07] MEDS: SODIUM FERR GLUC 62.5MG/5ML 125 MG in SODIUM CHL 0.9% 100 ML IV SCH (12:09)
[2021-04-07] MEDS: fentaNYL Drip 2500mCg/250mlNS 250 ML IV SCH (14:15)
[2021-04-07] MEDS: LINEZOLID 600MG/300ML 300 ML IV SCH (15:17)
[2021-04-07] MEDS ORDERED: TPN PER PHARMACY IV NR ×11 (20:00)
[2021-04-08] VITALS (20 sets, daily range): BP systolic 118–153; BP diastolic 59–79
[2021-04-08] MEDS: ALBUTEROL SULF 2.5 MG/0.5ML(0.5%) NEB SOLN NEB SCH ×4 (00:44→18:26)
[2021-04-08] MEDS: IPRATROPIUM BROM 0.5 MG/2.5ML INH SOL NEB SCH ×4 (00:44→18:27)
[2021-04-08] MEDS: LINEZOLID 600MG/300ML 300 ML IV SCH ×2 (02:00→14:50)
[2021-04-08] MEDS: HYDROmorphone HCL 2 MG/ML VL IV PRN ×2 (03:21→14:50)
[2021-04-08] MEDS: Ensure HIGH Protein Chocolate 8oz Bottle PO SCH ×3 (08:00→18:00)
[2021-04-08] MEDS: PANTOPRAZOLE 40 MG/10 ML VIAL INJ IV SCH (10:33)
[2021-04-08] MEDS: SODIUM CHLOR 0.9% PF (SALINE LOCK) 10ML VIAL/SYR IV SCH ×2 (10:34→21:35)
[2021-04-08] MEDS: CEFEPIME 1 GM in SODIUM CHL 0.9% 50 ML IV SCH (10:34)
[2021-04-08] MEDS: SODIUM FERR GLUC 62.5MG/5ML 125 MG in SODIUM CHL 0.9% 100 ML IV SCH (11:37)
[2021-04-08] MEDS ORDERED: MICAFUNGIN SODIUM 100 MG in SODIUM CHL 0.9% 100 ML IV ONE (12:00)
[2021-04-08 12:50] LABS: Hematocrit 21.8 % (36.0-46.0); Hemoglobin 7.1 g/dL (12.2-16.2); Mean Corpuscular Hgb Conc. 32.7 g/dL (32.0-36.0); Mean Corpuscular Volume 85.7 fL (80.0-100.0); Red Blood Cells 2.55 10^6/uL (4.0-5.20); Red Cell Distribution Width 17.1 % (11.8-14.3); White Blood Cell 14.9 10^3/uL (4.4-10.8)
[2021-04-08 12:53] LABS: Basophils % (manual) 0 (0.0-2.0); Blast Cells 0; Promyelocytes % 0; Reactive Lymphocytes 0
[2021-04-08 13:07] LABS: BUN/Creatinine Ratio 51.1; Calcium 8.4 mg/dL (8.5-10.1)
[2021-04-08 13:25] LABS: Band Neutrophils % (manual) 2; Eosinophils % (manual) 1 (0-7); Lymphocytes % (manual) 9 (10.0-50.0); Metamyelocytes % 2; Monocytes % (manual) 7 (0-12); Myelocytes % 1
[2021-04-08] MEDS ORDERED: FUROSEMIDE 40 MG/4 ML VIAL IV ONE (14:30)
[2021-04-08] MEDS ORDERED: POTASSIUM CHL 10 Meq TABLET PO ONE (14:45)
[2021-04-08] MEDS ORDERED: POTASSIUM CHL 20MEQ/100ML 100 ML IV ONE (15:45)
[2021-04-08] MEDS: metroNIDAZOLE 500MG/100ML 100 ML IV SCH (21:25)
[2021-04-09 05:00] VITALS: BP 150/83
[2021-04-09 05:54] LABS: Hemoglobin 7.8 g/dL (12.2-16.2); Mean Corpuscular Volume 83.9 fL (80.0-100.0)
[2021-04-09] MEDS: metroNIDAZOLE 500MG/100ML 100 ML IV SCH ×3 (05:54→21:57)
[2021-04-09 05:56] LABS: Hematocrit 22.8 % (36.0-46.0); Mean Corpuscular Hemoglobin 28.6 pg (28.0-32.0); Mean Corpuscular Hgb Conc. 34.1 g/dL (32.0-36.0); Red Blood Cells 2.72 10^6/uL (4.0-5.20); Red Cell Distribution Width 17.1 % (11.8-14.3); White Blood Cell 13.5 10^3/uL (4.4-10.8)
[2021-04-09 06:10] LABS: Basophils % (manual) 0 (0.0-2.0); Blast Cells 0; Promyelocytes % 0; Reactive Lymphocytes 0
[2021-04-09 06:17] LABS: BUN/Creatinine Ratio 47.7; Calcium 8.7 mg/dL (8.5-10.1)
[2021-04-09] MEDS: IPRATROPIUM BROM 0.5 MG/2.5ML INH SOL NEB SCH ×4 (06:17→19:07)
[2021-04-09] MEDS: ALBUTEROL SULF 2.5 MG/0.5ML(0.5%) NEB SOLN NEB SCH ×4 (06:17→19:07)
[2021-04-09 06:57] LABS: Band Neutrophils % (manual) 10; Eosinophils % (manual) 1 (0-7); Lymphocytes % (manual) 7 (10.0-50.0); Metamyelocytes % 2; Monocytes % (manual) 2 (0-12); Myelocytes % 2
[2021-04-09] MEDS: Ensure HIGH Protein Chocolate 8oz Bottle PO SCH ×3 (08:00→18:00)
[2021-04-09 09:00] VITALS: BP 152/76
[2021-04-09] MEDS ORDERED: fentaNYL CITRATE 100 MCG/2 ML VL IV ONE (09:30)
[2021-04-09] MEDS ORDERED: MIDAZOLAM HCL 2MG/2ML 2ml VIAL (1mg/ml) IV ONE (09:30)
[2021-04-09] MEDS: SODIUM CHLOR 0.9% PF (SALINE LOCK) 10ML VIAL/SYR IV SCH ×2 (10:02→21:57)
[2021-04-09 13:00] VITALS: BP 150/76
[2021-04-09] MEDS ORDERED: FUROSEMIDE 40 MG/4 ML VIAL IV ONE (16:00)
[2021-04-09] MEDS ORDERED: DULoxetine HCL 30 MG CAP PO ONE (16:15)
[2021-04-09 17:00] VITALS: BP 177/89
[2021-04-09] MEDS: PANTOPRAZOLE 40 MG/10 ML VIAL INJ IV SCH (17:05)
[2021-04-09] MEDS: MICAFUNGIN SODIUM 100 MG in SODIUM CHL 0.9% 100 ML IV SCH (17:06)
[2021-04-09] MEDS: HYDROmorphone HCL 2 MG/ML VL IV PRN (17:30)
[2021-04-09] MEDS ORDERED: EPOETIN ALFA-EPBX 4,000 UNIT/ML VIAL SC ONE (21:00)
[2021-04-09 22:00] VITALS: BP 155/84
[2021-04-10 05:00] VITALS: BP 159/82
[2021-04-10] MEDS: metroNIDAZOLE 500MG/100ML 100 ML IV SCH ×3 (05:51→22:16)
[2021-04-10] MEDS: HYDROmorphone HCL 2 MG/ML VL IV PRN ×3 (06:04→18:12)
[2021-04-10] MEDS: Ensure HIGH Protein Chocolate 8oz Bottle PO SCH ×3 (08:00→18:00)
[2021-04-10] MEDS: IPRATROPIUM BROM 0.5 MG/2.5ML INH SOL NEB SCH ×5 (08:04→23:45)
[2021-04-10] MEDS: ALBUTEROL SULF 2.5 MG/0.5ML(0.5%) NEB SOLN NEB SCH ×5 (08:04→23:45)
[2021-04-10 09:00] VITALS: BP 146/87
[2021-04-10] MEDS ORDERED: DULoxetine HCL 30 MG CAP PO SCH (10:00)
[2021-04-10 10:18] LABS: Hematocrit 24.1 % (36.0-46.0); Mean Corpuscular Hemoglobin 28.3 pg (28.0-32.0); Mean Corpuscular Hgb Conc. 33.1 g/dL (32.0-36.0); Mean Corpuscular Volume 85.3 fL (80.0-100.0); Red Blood Cells 2.83 10^6/uL (4.0-5.20); Red Cell Distribution Width 17.7 % (11.8-14.3); White Blood Cell 13.3 10^3/uL (4.4-10.8)
[2021-04-10 10:23] LABS: Basophils % (manual) 0 (0.0-2.0); Blast Cells 0; Eosinophils % (manual) 0 (0-7); Myelocytes % 0; Promyelocytes % 0; Reactive Lymphocytes 0
[2021-04-10 10:45] LABS: Calcium 8.6 mg/dL (8.5-10.1); Potassium 3.6 mmol/L (3.5-5.1)
[2021-04-10] MEDS: MICAFUNGIN SODIUM 100 MG in SODIUM CHL 0.9% 100 ML IV SCH (11:12)
[2021-04-10] MEDS: PANTOPRAZOLE 40 MG/10 ML VIAL INJ IV SCH (11:12)
[2021-04-10] MEDS: SODIUM CHLOR 0.9% PF (SALINE LOCK) 10ML VIAL/SYR IV SCH ×2 (11:12→22:16)
[2021-04-10 11:28] LABS: Band Neutrophils % (manual) 1; Lymphocytes % (manual) 6 (10.0-50.0); Metamyelocytes % 1; Monocytes % (manual) 3 (0-12)
[2021-04-10 12:52] VITALS: BP 134/78
[2021-04-10] MEDS ORDERED: LEVOTHYROXINE SODIUM 100 MCG/5 ML INJ IV ONE (16:30)
[2021-04-10] MEDS ORDERED: ERGOCALCIFEROL 50,000 UNIT(1.25MG) CAP PO SCH (16:30)
[2021-04-10 17:00] VITALS: BP 143/73
[2021-04-10] MEDS ORDERED: LORazepam 0.5 MG TAB PO PRN (18:00)
[2021-04-10 22:00] VITALS: BP 142/90
[2021-04-11] MEDS: HYDROmorphone HCL 2 MG/ML VL IV PRN ×2 (00:41→06:39)
[2021-04-11 05:00] VITALS: BP 137/82
[2021-04-11] MEDS: metroNIDAZOLE 500MG/100ML 100 ML IV SCH ×2 (06:10→16:01)
[2021-04-11] MEDS: IPRATROPIUM BROM 0.5 MG/2.5ML INH SOL NEB SCH ×3 (06:24→18:47)
[2021-04-11] MEDS: ALBUTEROL SULF 2.5 MG/0.5ML(0.5%) NEB SOLN NEB SCH ×3 (06:24→18:47)
[2021-04-11] MEDS: Ensure HIGH Protein Chocolate 8oz Bottle PO SCH ×3 (08:00→18:00)
[2021-04-11 09:00] VITALS: BP 124/72
[2021-04-11] MEDS ORDERED: HYDROcodone-ACET 5/325MG TAB PO PRN (09:30)
[2021-04-11] MEDS ORDERED: PANTOPRAZOLE 40 MG TAB PO SCH (10:00)
[2021-04-11] MEDS ORDERED: LEVOTHYROXINE SODIUM 100 MCG/5 ML INJ IV SCH ×2 (10:00)
[2021-04-11] MEDS ORDERED: LIDOCAINE 5% TOPICAL PATCH TOP SCH (10:00)
[2021-04-11] MEDS ORDERED: VENLAFAXINE HCL 37.5mg XR cap PO SCH (10:00)
[2021-04-11] MEDS: MICAFUNGIN SODIUM 100 MG in SODIUM CHL 0.9% 100 ML IV SCH (10:09)
[2021-04-11] MEDS: SODIUM CHLOR 0.9% PF (SALINE LOCK) 10ML VIAL/SYR IV SCH (10:11)
[2021-04-11 10:12] LABS: Hemoglobin 8.4 g/dL (12.2-16.2)
[2021-04-11 10:20] LABS: Hematocrit 25.2 % (36.0-46.0); Mean Corpuscular Hemoglobin 28.3 pg (28.0-32.0); Mean Corpuscular Hgb Conc. 33.5 g/dL (32.0-36.0); Mean Corpuscular Volume 84.7 fL (80.0-100.0); Red Blood Cells 2.97 10^6/uL (4.0-5.20); White Blood Cell 15.7 10^3/uL (4.4-10.8)
[2021-04-11 10:26] LABS: Basophils % (manual) 0 (0.0-2.0); Blast Cells 0; Eosinophils % (manual) 0 (0-7); Promyelocytes % 0; Reactive Lymphocytes 0
[2021-04-11 10:27] LABS: BUN/Creatinine Ratio 47.7; Calcium 8.4 mg/dL (8.5-10.1); Potassium 3.6 mmol/L (3.5-5.1)
[2021-04-11] MEDS ORDERED: METOPROLOL SUCCINATE XL 50 MG TAB PO ONE (11:30)
[2021-04-11] MEDS ORDERED: FUROSEMIDE 40 MG/4 ML VIAL IV ONE (12:00)
[2021-04-11] MEDS ORDERED: POTASSIUM EFFERVESENT TAB 25 MEQ PO ONE (12:00)
[2021-04-11 12:37] VITALS: BP 144/80
[2021-04-11 13:02] LABS: Band Neutrophils % (manual) 3; Lymphocytes % (manual) 6 (10.0-50.0); Metamyelocytes % 1; Monocytes % (manual) 5 (0-12); Myelocytes % 1
[2021-04-11 17:00] VITALS: BP 145/81
[2021-04-11 17:20] VITALS: BP 145/81
[2021-04-12] MEDS ORDERED: LEVOTHYROXINE SODIUM 25 MCG TAB PO SCH (07:00)
[2021-04-12] MEDS ORDERED: METOPROLOL SUCCINATE XL 50 MG TAB PO SCH (10:00)
== END 2021-04-11 19:00 | DRG 853 ==
LOC: EDBD 12:30 → ER 12:30 → OVERFLOW 16:19 → CENTRAL 20:16 → TELE-CENTR 03-12 16:26 → ICU WEST 03-21 12:27 → TELE-CENTR 03-25 21:22 → DOU IN ICU 03-30 23:00 → TELE-WESTW 04-08 19:45
PROVIDERS: ADMIT Nurse Practitioner Acute Care; ATTEND Internal Medicine
PROC: 30233N1 Transfusion of Nonautologous Red Blood Cells into Peripheral Vein, Percutaneous Approach (ICD-10-PCS; 2021-03-14)
PROC: 0DBL8ZX Excision of Transverse Colon, Via Natural or Artificial Opening Endoscopic, Diagnostic (ICD-10-PCS; 2021-03-19)
PROC: 02HV33Z Insertion of Infusion Device into Superior Vena Cava, Percutaneous Approach (ICD-10-PCS; 2021-03-20)
PROC: 0DBH0ZZ Excision of Cecum, Open Approach (ICD-10-PCS; 2021-03-21)
PROC: 0D1H0Z4 Bypass Cecum to Cutaneous, Open Approach (ICD-10-PCS; 2021-03-21)
PROC: 5A1935Z Respiratory Ventilation, Less than 24 Consecutive Hours (ICD-10-PCS; 2021-03-21)
PROC: 0BH17EZ Insertion of Endotracheal Airway into Trachea, Via Natural or Artificial Opening (ICD-10-PCS; 2021-03-21)
PROC: 3E0336Z Introduction of Nutritional Substance into Peripheral Vein, Percutaneous Approach (ICD-10-PCS; 2021-03-21)
PROC: 0D9670Z Drainage of Stomach with Drainage Device, Via Natural or Artificial Opening (ICD-10-PCS; 2021-03-28)
PROC: 0DN80ZZ Release Small Intestine, Open Approach (ICD-10-PCS; 2021-04-02)
PROC: 0DTN0ZZ Resection of Sigmoid Colon, Open Approach (ICD-10-PCS; 2021-04-02)
PROC: 0BH17EZ Insertion of Endotracheal Airway into Trachea, Via Natural or Artificial Opening (ICD-10-PCS; 2021-04-02)
PROC: 0DTM0ZZ Resection of Descending Colon, Open Approach (ICD-10-PCS; 2021-04-02)
PROC: 0D1B0Z4 Bypass Ileum to Cutaneous, Open Approach (ICD-10-PCS; 2021-04-02)
PROC: 5A1945Z Respiratory Ventilation, 24-96 Consecutive Hours (ICD-10-PCS; principal; 2021-04-02 09:53)
PROC: B245ZZ4 Ultrasonography of Left Heart, Transesophageal (ICD-10-PCS; 2021-04-09)
PROC: 05HD33Z Insertion of Infusion Device into Right Cephalic Vein, Percutaneous Approach (ICD-10-PCS; 2021-04-09)
PROC: B54MZZA Ultrasonography of Right Upper Extremity Veins, Guidance (ICD-10-PCS; 2021-04-09)
DX: A41.9 Sepsis, unspecified organism (principal); R65.21 Severe sepsis with septic shock; J96.01 Acute respiratory failure with hypoxia; N17.0 Acute kidney failure with tubular necrosis; G92 Toxic encephalopathy; K65.1 Peritoneal abscess; E43 Unspecified severe protein-calorie malnutrition; K56.2 Volvulus; J98.11 Atelectasis; K63.3 Ulcer of intestine; K59.39 Other megacolon; K56.690 Other partial intestinal obstruction; M25.461 Effusion, right knee; I25.10 Atherosclerotic heart disease of native coronary artery without angina pectoris; D50.9 Iron deficiency anemia, unspecified; E87.6 Hypokalemia; K21.9 Gastro-esophageal reflux disease without esophagitis; K56.41 Fecal impaction; R62.7 Adult failure to thrive; F06.31 Mood disorder due to known physiological condition with depressive features; M19.079 Primary osteoarthritis, unspecified ankle and foot; M48.00 Spinal stenosis, site unspecified; E66.01 Morbid (severe) obesity due to excess calories; K44.9 Diaphragmatic hernia without obstruction or gangrene; K66.0 Peritoneal adhesions (postprocedural) (postinfection); E03.9 Hypothyroidism, unspecified; F32.9 Major depressive disorder, single episode, unspecified; G89.29 Other chronic pain; Z66 Do not resuscitate; G56.01 Carpal tunnel syndrome, right upper limb; M10.9 Gout, unspecified; M11.261 Other chondrocalcinosis, right knee; I10 Essential (primary) hypertension; E55.9 Vitamin D deficiency, unspecified; E78.5 Hyperlipidemia, unspecified; G62.9 Polyneuropathy, unspecified; D47.3 Essential (hemorrhagic) thrombocythemia; M54.2 Cervicalgia; M79.604 Pain in right leg; F41.9 Anxiety disorder, unspecified; I48.91 Unspecified atrial fibrillation; Z82.49 Family history of ischemic heart disease and other diseases of the circulatory system; Z82.3 Family history of stroke; Z95.5 Presence of coronary angioplasty implant and graft; Z79.899 Other long term (current) drug therapy; Z90.49 Acquired absence of other specified parts of digestive tract; Z88.1 Allergy status to other antibiotic agents; Z68.36 Body mass index [BMI] 36.0-36.9, adult
CPT/HCPCS: 36415; 36569; 36600; 71045; 72131; 73560; 73620; 73700; 74018; 74176; 74177; 74178; 74250; 74270; 80048; 80053; 81001; 82040; 82270; 82306; 82550; 82570; 82607; 82746; 82805; 82962; 83540; 83550; 83605; 83735; 84100; 84132; 84156; 84300; 84425; 84439; 84443; 84478; 84550; 85007; 85014; 85018; 85025; 85027; 85049; 85610; 85652; 85730; 86141; 86225; 86235; 86850; 86900; 86901; 86920; 87040; 87070; 87081; 87086; 87088; 87186; 87205; 87426; 89051; 89060; 92610; 93005; 93306; 93312; 93971; 94002; 94003; 94640; 96374; 96375; 97110; 97116; 97163; 97530; 99152; C9113; G0378; J0330; J0690; J0696; J1100; J1815; J1885; J2001; J2248; J2250; J2405; J2543; J3480; J3490; J7060; J7131